=== PATIENT | male | born 1945 | race Caucasian/White ===

== ENCOUNTER 2018-02-20 17:56 | Emergency (ER) | payer MEDICARE, OTHER ==
[~2018-02-20] VITALS: Ht 185.4 cm; Wt 149.2 kg
[~2018-02-20 17:56] MED LIST: AMAN100T PO; AMOX-355 PO; AMOX-358 PO; ASP81TEC PO; ASPI81TA57 PO; CA C1TAB26 PO; CARB1TAB6 PO; CEPH-38 PO; CHOL10003 PO; CLIN300C11 PO; DICL500C PO; DONE10TA41 PO; FISH1CAP15 PO; FURO80TA3 PO; GABA300C PO; GUAI120013 PO; IBUP-30 PO; INDO50CA PO; LEVO750T6 PO; LISI20TA PO; METO25TA2 PO; METO25TA6 PO; METO50TA2 PO; METO50TA7 PO; NAPR-243 PO; NTR.4SL SL; POTA99TA4 PO; ROSU10TA12 PO; SERT100T PO; TRM50T PO; UBID100C8 PO; [UNRECOGNIZED DRUG - OTHER] SL; hydrocodone
[2018-02-20] MEDS ORDERED: AUGMENTIN 875 MG TAB (AMOXICILLIN/CLAVULANATE) PO STA (19:19)
[2018-02-20] MEDS ORDERED: morphine INJ 10 MG/ML 1ML (SYR OR VIAL) IM STA (19:19)
--- NOTE | 2018-02-20 19:26 | ED EENT ---
History of Present Illness General Chief Complaint: Dental Problems/Pain Stated Complaint: ABSCESS IN MOUTH, TROUBLE SWALLOWING Nursing Triage Note: Pt has dental abscess w/ pain radiating to L ear and difficulty swallowing. Pt was put on clindamycin by Dr. Steinberg. Pt reports pain and swelling continues to get worse. Source: patient Exam Limitations: no limitations History of Present Illness Date Seen by Provider: Feb 20, 2018 Time Seen by Provider: 19:05 Initial Comments Here with report of pain to the left side of the upper jaw and left sinuses radiates to the ear. Does have some throat pain on the left side that is painful to swallow. He is not having difficulty with swallowing or breathing but it hurts. Does notice lymphadenopathy on the left as well. Was started on clindamycin and yesterday but is not getting better. In fact he appears to be getting a little bit worse which prompted the visit. Does have history of sinusitis problems. Does have poor dentition and [facility]. Denies breathing or vomiting problems otherwise. Timing/Duration: gradual, other (several days) Severity: moderate Location: mouth, throat, facial, dental Prearrival Treatment: prescription meds Modifying Factors: Worse With Activity Associated Symptoms: No cough, No fever, sinus infection, sore throat, tooth pain, No voice change Allergies and Home Medications Allergies Coded Allergies: No Known Drug Allergies (Unverified , 07/02/10) Home Medications Amantadine Hcl 100 Mg Tablet, 100 MG PO DAILY, (Reported) Amoxicillin/Potassium Clav 1 Each Tablet, 1 EACH PO BID Prescribed by: CARL SANDERS on 10/03/16 152 Aspirin 81 Mg Tablet.dr, 81 MG PO DAILY, (Reported) Carbidopa/Levodopa 1 Each Tablet, 1 TAB PO 5 X DAILY, (Reported) Cholecalciferol 1,000 Unit Tablet, 1,000 UNIT PO DAILY, (Reported) Clindamycin HCl 300 Mg Capsule, 300 MG PO QID Prescribed by: THU ENGLISH on 10/16/151818 Dicloxacillin Sodium 500 Mg Capsule, 500 MG PO QID Prescribed by: THU ENGLISH on 10/16/151818 Donepezil Hcl 10 Mg Tablet, 10 MG PO HS, (Reported) Furosemide 80 Mg Tablet, 80 MG PO DAILY PRN for SWELLING, (Reported) Gabapentin 300 Mg Capsule, 600 MG PO HS, (Reported) Guaifenesin 1,200 Mg Tbmp.12hr, 1,200 MG PO BID PRN for COUGH Prescribed by: PARISH STEINBERG on 12/28/14 0923 Ibuprofen 200 Mg Tablet, 600 MG PO DAILY, (Reported) TAKES 3 (200MG) Lisinopril 20 Mg Tablet, 20 MG PO DAILY, (Reported) Metoprolol Tartrate 25 Mg Tablet, 50 MG PO DAILY, (Reported) TAKES 2 (25MG) TABLET Metoprolol Tartrate 25 Mg Tablet, 25 MG PO HS, (Reported) Nitroglycerin 0.4 Mg Subl, 0.4 MG SL NEEDED, (Reported) Potassium Gluconate 99 Mg Tablet, 99 MG PO DAILY PRN for WITH LASIX, (Reported) Rosuvastatin Calcium 10 Mg Tablet, 10 MG PO DAILY, (Reported) Sertraline HCl 100 Mg Tablet, 200 MG PO DAILY, (Reported) Ubidecarenone 100 Mg Capsule, 100 MG PO DAILY, (Reported) Patient Home Medication List Home Medication List Reviewed: Yes Review of Systems Constitutional: see HPI, No chills, No fever Eyes: No Symptoms Reported Ears: See HPI, Pain Nose: congestion, pain Mouth: pain, swelling Throat: pain, denies neck stiffness, denies hoarse, denies aphonia, denies muffled, painful swallowing, denies difficulty with fluids Respiratory: No cough, No short of breath Cardiovascular: no symptoms reported Gastrointestinal: no symptoms reported Musculoskeletal: no symptoms reported Skin: no symptoms reported, No change in color, No lesions Past Eaqswxg-Vqwkte-Heygtx Hx Patient Social History Alcohol Use: Denies Use Recreational Drug Use: No Smoking Status: Current Someday Smoker Type Used: Cigars 2nd Hand Smoke Exposure: No Recent Foreign Travel: No Contact w/Someone Who Travel: No Recent Infectious Disease Expo: No Recent Hopitalizations: No Immunizations Up To Date Tetanus Booster (TDap): Less than 5yrs Date of Pneumonia Vaccine: Jan 24, 2014 Seasonal Allergies Seasonal Allergies: No Surgeries History of Surgeries: Yes (HORSE SHOE KIDNEY- stents ) Respiratory History of Respiratory Disorde: No Cardiovascular History of Cardiac Disorders: Yes Cardiac Disorders: Heart Attack, High Cholesterol, Hypertension Neurological History of Neurological Disord: Yes Neurological Disorders: Dementia, Parkinson's Disease Reproductive System Hx Reproductive Disorders: No Gastrointestinal History of Gastrointestinal Di: No Musculoskeletal History of Musculoskeletal Dis: No Endocrine History of Endocrine Disorders: No HEENT HEENT Disorders: Tinnitis Cancer History of Cancer: No Psychosocial History of Psychiatric Problem: Yes Behavioral Health Disorders: PTSD Integumentary History of Skin or Integumenta: No Blood Transfusions History of Blood Disorders: No Reviewed Nursing Assessment Reviewed/Agree w Nursing PMH: Yes Family Medical History Significant Family History: No Pertinent Family Hx Family Medial History: Alzheimer's disease 19 MOTHER Cardiovascular disease 19 MOTHER Dementia 19 MOTHER Myocardial infarction 19 MOTHER Physical Exam Vital Signs Vital Signs - First Documented 02/20/18 18:12 Temp 98.1 Pulse 73 Resp 18 B/P (MAP) 135/68 (90) Pulse Ox 94 O2 Delivery Room Air General Appearance: WD/WN, no apparent distress Ears: bilateral ear auricle normal, bilateral ear canal normal, bilateral ear TM normal Nose: sinus tenderness (especially on the left frontal and maxillary), other ( moderate to significant bilateral nasal congestion with erythema) Mouth/Throat: dental tenderness, No maxillary swelling, No pharynx swelling, pharynx tenderness, No tonsillar swelling, No trismus, No voice changes, other ( tender over the maxillary sinus and posterior maxillary teeth on the left) Neck: full range of motion, supple, No lymphadenopathy (R), lymphadenopathy (L) Cardiovascular: regular rate, rhythm, no murmur Respiratory: lungs clear, normal breath sounds Neurologic/Psychiatric: alert, oriented x 3 Skin: normal color, warm/dry Progress/Results/Core Measures Results/Orders My Orders Orders - MAL SIERRA MD Amoxicillin/Clavulanate Tablet (Augmenti (02/20/18 19:19) Morphine Injection (Morphine Injection (02/20/18 19:19) Dexamethasone Injection (Decadron Inject (02/20/18 19:30) Medications Given in ED Current Medications Medications Dose Ordered Sig/Timmy Route Start Time Stop Time Status Last Admin Dose Admin Dexamethasone Sodium Phosphate 10 mg ONCE ONCE IM 02/20/18 19:30 02/20/18 19:31 DC 02/20/18 19:41 10 MG Vital Signs/I&O Vital Sign - Last 12Hours 02/20/18 18:12 Temp 98.1 Pulse 73 Resp 18 B/P (MAP) 135/68 (90) Pulse Ox 94 O2 Delivery Room Air Blood Pressure Mean: 90 Progress Note : Progress Note Seen and evaluated. Augmentin 875 mg by mouth given due to concerns of untreated sinusitis. Decadron 10 mg IM and morphine 10 mg IM for pain and sinus disease. Discharged home with return precautions. Patient verbalize understanding instructions and agreement with plan. Departure Impression Impression: Primary Impression: Acute maxillary sinusitis Qualified Codes: J01.00 - Acute maxillary sinusitis, unspecified Additional Impression: Dental caries Disposition: HOME, SELF-CARE Condition: Improved Departure-Patient Inst. Decision time for Depature: 19:44 Referrals: PARISH STEINBERG DO (PCP/Family) Primary Care Physician Patient Instructions: Dental Pain (DC), Sinusitis, Adult (DC) Add. Discharge Instructions: All discharge instructions reviewed with patient and/or family. Voiced understanding. Take medications as directed. You may take your hydrocodone 2 tablets every 6 hours as needed for pain but do not take more than 2 every 6 hours. You may discontinue the clindamycin and start the Augmentin. Follow up with your Dr. in a few days for recheck. Return for worsening, fever, vomiting, weakness, breathing problems or other concerns as needed. Scripts Amoxicillin/Potassium Clav (Augmentin 875-125 Tablet) 1 Each Tablet 1 EACH PO BID, #20 TAB 0 Refills Prov: MAL SIERRA MD 02/20/18 MAL SIERRA MD Feb 20, 2018 19:26
[2018-02-20] MEDS ORDERED: DEXAMETHASONE 10 MG/ML (DECADRON) 1 ML VIAL IM ONE (19:30)
[2018-02-20] MEDS ORDERED: AMOX-358 PO (19:47)
[2018-02-20 19:55] VITALS: BP 135/68
== END 2018-02-20 19:55 | disposition home or self-care (01) ==
LOC: EDUNIT# 17:56 → ER 17:58
DX: J01.00 Acute maxillary sinusitis, unspecified (principal); K02.9 Dental caries, unspecified; I25.2 Old myocardial infarction; E78.00 Pure hypercholesterolemia, unspecified; I10 Essential (primary) hypertension; G20 Parkinson's disease; F03.90 Unspecified dementia, unspecified severity, without behavioral disturbance, psychotic disturbance, mood disturbance, and anxiety; F43.10 Post-traumatic stress disorder, unspecified; F17.290 Nicotine dependence, other tobacco product, uncomplicated; Z79.82 Long term (current) use of aspirin; Z82.49 Family history of ischemic heart disease and other diseases of the circulatory system; Z96.0 Presence of urogenital implants
CPT/HCPCS: 96372; 99284

== ENCOUNTER → 2019-04-07 | Outpatient (CLI) | payer MEDICARE, OTHER ==
--- NOTE | 2019-04-07 17:39 | Diagnostic Imaging Report ---
INDICATION: History of tendinitis. Bilateral knee pain. Muscle weakness. COMPARISON: 11/14/2016. FINDINGS: Multiple radiographic views of the bilateral knees were obtained. There is no evidence of acute fracture or dislocation. There are mild osteoarthritic changes bilaterally, consisting primarily of medial tibiofemoral joint space narrowing. Patellar osteophyte formations are also noted, superiorly and bilaterally. There is no large joint effusion. Surrounding soft tissue structures are unremarkable. No unexpected radiopaque foreign bodies are seen. IMPRESSION: 1. No acute fracture or dislocation of either knee. 2. Mild osteoarthritic changes. Dictated by: Dictated on workstation # [id number]
== END ==
LOC: RAD 10:39
PROVIDERS: ATTEND Internal Medicine
DX: M17.0 Bilateral primary osteoarthritis of knee (principal); M77.9 Enthesopathy, unspecified; M62.81 Muscle weakness (generalized)

== ENCOUNTER 2022-03-05 03:30 | Emergency (ER) | payer MEDICARE, OTHER ==
[~2022-03-05] VITALS: Ht 182 cm; Wt 136.0 kg
[~2022-03-05 03:30] MED LIST changes: +CLIN-144 PO; -CLIN300C11 PO
--- NOTE | 2022-03-05 04:09 | ED Upper Extremity ---
General Chief Complaint: Upper Extremity Stated Complaint: LEFT HAND SWOLLEN & HOT Nursing Triage Note: Pt ambulatory to ED c/o pain to left wrist/hand. Pt states he was drilling on Friday and lost control of it and hit his left wrist, was unable to sleep tonight d/t the pain. Source: patient History of Present Illness Date Seen by Provider: Mar 05, 2022 Time Seen by Provider: 03:47 Initial Comments PT ARRIVES VIA POV FROM HOME WITH C/O PAIN, REDNESS AND SWELLING TO LEFT HAND STATES ON FRIDAY HE WAS USING A DRILL AND HE LOST CONTROL OF IT AND IT KICKED BACK AND HIT THE BACK OF HIS LEFT HAND, NEAR BASE OF THUMB AND WRIST AREA NO BROKEN SKIN NO PARESTHESIAS OR MOTOR DEFICITS NO OTHER INJURIES FROM THE INCIDENT NO PRIOR INJURIES TO THIS HAND/WRIST PT IS LEFT HANDED PT TOOK IBUPROFEN AT MIDNIGHT, NO RELIEF PT IS NOT DIABETIC PT IS NOT ON ASPIRIN OR BLOOD THINNERS PCP: DR. CAMARENA Allergies and Home Medications Allergies Coded Allergies: No Known Drug Allergies (Unverified , 07/02/10) Patient Home Medication List Amantadine Hcl (Amantadine) 100 Mg Tablet, 100 MG PO DAILY, (Reported) Entered as Reported by: THO SOLORZANO on 12/26/14 1643 Amoxicillin/Potassium Clav (Augmentin 500-125 Tablet) 1 Each Tablet, 1 EACH PO BID Prescribed by: CARL SANDERS on 10/03/16 1522 Amoxicillin/Potassium Clav (Augmentin 875-125 Tablet) 1 Each Tablet, 1 EACH PO BID Prescribed by: MAL SIERRA on 02/20/18 1947 Aspirin (Aspir-Low) 81 Mg Tablet.dr 81 MG PO DAILY, (Reported) Entered as Reported by: THO SOLORZANO on 12/26/14 1657 Carbidopa/Levodopa (Sinemet 25-100 Tablet) 1 Each Tablet, 1 TAB PO 5 X DAILY, (Reported) Entered as Reported by: THO SOLORZANO on 12/26/14 1643 Cephalexin (Cephalexin) 500 Mg Tablet, 500 MG PO QID Prescribed by: GRETCHEN TOSCANO on 03/05/22 0415 Cholecalciferol (Vitamin D) 1,000 Unit Tablet, 1,000 UNIT PO DAILY, (Reported) Entered as Reported by: THO SOLORZANO on 12/26/14 1204 Clindamycin HCl (Clindamycin HCl) 300 Mg Capsule, 300 MG PO QID Prescribed by: THU ENGLISH on 10/16/151818 Dicloxacillin Sodium (Dicloxacillin Sodium) 500 Mg Capsule, 500 MG PO QID Prescribed by: THU ENGLISH on 10/16/151818 Donepezil Hcl (Donepezil Hcl) 10 Mg Tablet, 10 MG PO HS, (Reported) Entered as Reported by: DIXON BAILEY on 06/16/121715 Furosemide (Furosemide) 80 Mg Tablet, 80 MG PO DAILY PRN for SWELLING, (Reported) Entered as Reported by: SHAD LITTLE on 07/02/10822 Gabapentin (Neurontin) 300 Mg Capsule, 600 MG PO HS, (Reported) Entered as Reported by: THO SOLORZANO on 12/26/141656 Guaifenesin (Mucinex) 1,200 Mg Tbmp.12hr, 1,200 MG PO BID PRN for COUGH Prescribed by: PARISH CAMARENA on 12/28/14922 Hydrocodone/Acetaminophen (Hydrocodone-Acetamin 5-325 mg) 1 Each Tablet, 1 EACH PO Q4-6 HOURS PRN for PAIN Prescribed by: GRETCHEN TOSCANO on 03/05/22415 Ibuprofen (Advil) 200 Mg Tablet, 600 MG PO DAILY, (Reported) Entered as Reported by: DIXON BAILEY on 06/16/121715 Lisinopril (Zestril) 20 Mg Tablet, 20 MG PO DAILY, (Reported) Entered as Reported by: SHAD LITTLE on 07/02/10822 Metoprolol Tartrate (Metoprolol Tartrate) 25 Mg Tablet, 50 MG PO DAILY, (Reported) Entered as Reported by: THO SOLORZANO on 12/26/141656 Metoprolol Tartrate (Metoprolol Tartrate) 25 Mg Tablet, 25 MG PO HS, (Reported) Entered as Reported by: THO SOLORZANO on 12/26/141656 Nitroglycerin (Nitrostat) 0.4 Mg Subl, 0.4 MG SL NEEDED, (Reported) Entered as Reported by: DIXON BAILEY on 06/16/121715 Potassium Gluconate (Potassium Gluconate) 99 Mg Tablet, 99 MG PO DAILY PRN for WITH LASIX, (Reported) Entered as Reported by: SHAD LITTLE on 07/02/10822 Rosuvastatin Calcium (Crestor) 10 Mg Tablet, 10 MG PO DAILY, (Reported) Entered as Reported by: SHAD LITTLE on 07/02/10822 Sertraline HCl (Zoloft) 100 Mg Tablet, 200 MG PO DAILY, (Reported) Entered as Reported by: CATILIN BULL on 10/16/15 1546 Ubidecarenone (Co Q10) 100 Mg Capsule, 100 MG PO DAILY, (Reported) Entered as Reported by: DIXON BAILEY on 06/16/12 1716 Past Sjkuitx-Vsilmb-Hwichc Hx Patient Social History Tobacco Use?: No Substance use?: No Alcohol Use?: No Immunizations Up To Date Tetanus Booster (TDap): Less than 5yrs Influenza Vaccine Up-to-Date: Yes; Up-to-Date First/Initial COVID19 Vaccinat: 12/14 Second COVID19 Vaccination [place]: 01/14 COVID19 Vaccine 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 Tender: Banksnob Seasonal Allergies Seasonal Allergies: No Past Medical History Surgeries: Yes (HORSE SHOE KIDNEY- stents ) Respiratory: No Cardiac: Yes Heart Attack, High Cholesterol, Hypertension Neurological: Yes Dementia, Parkinson's Disease Reproductive Disorders: No Gastrointestinal: No Musculoskeletal: No Endocrine: No Tinnitis Cancer: No Psychosocial: Yes PTSD Integumentary: No Blood Disorders: No Family Medical History Alzheimer's disease 19 MOTHER Cardiovascular disease 19 MOTHER Dementia 19 MOTHER Myocardial infarction 19 MOTHER No Family History of: AIDS Abdominal aortic aneurysm Julio César's disease Alcoholism Aphasia Arthritis Asthma Cancer of mouth Cataracts Colon cancer Completed stroke Congenital disease Congenital heart disease Coronary thrombosis Cystic fibrosis Deafness or hearing loss Diabetes mellitus Drug abuse Dysphasia Fibrocystic disease of breast Gastroenteritis Glaucoma Headache disorder Hypercholesterolemia Hypertension Infertility Kidney disease Neoplasm Not obtainable due to adoption Osteoporosis Parkinson's disease Prostate cancer Psychosocial problem Respiratory disorder Seizure disorder Severe allergy Thyroid disease Tuberculosis Visual disorder No Pertinent Family Hx Physical Exam Vital Signs Vital Signs - First Documented 03/05/22 03:42 Temp 36.1 Pulse 59 Resp 18 B/P (MAP) 132/69 (90) Pulse Ox 96 O2 Delivery Room Air Capillary Refill : Less Than 3 Seconds Height, Weight, BMI Height: 6'1.00" Weight: 329lbs. oz. 149.934573sa; 41.00 BMI Method:Stated Procedures/Interventions Splinting and Joint Reduction : Splints: Thumb/Wrist Spica Progress/Results/Core Measures Results/Orders My Orders Orders - GRETCHEN TOSCANO DO Wrist, Left, 3 Views Or More (03/05/22 03:52) Hand, Left, 3 Views (03/05/22 03:52) Rx-Hydrocodone/Apap 5-325 Mg (Rx-Vicodin (03/05/22 04:30) Rx-Cephalexin Capsule (Rx-Keflex Capsule (03/05/22 04:16) Vital Signs/I&O 03/05/22 03:42 Temp 36.1 Pulse 59 Resp 18 B/P (MAP) 132/69 (90) Pulse Ox 96 O2 Delivery Room Air Blood Pressure Mean: 90 Diagnostic Imaging Comments XRAYS--PENDING RADIOLOGIST REVIEW LEFT HAND AND LEFT WRIST--NO ACUTE PROCESS, ARTHRITIC CHANGES Departure Impression Primary Impression: Contusion of left hand Additional Impression: POSSIBLE EARLY CELLULITIS OF LEFT HAND Disposition: 01 HOME, SELF-CARE Condition: Stable Departure-Patient Inst. Decision time for Depature: 04:13 Referrals: PARISH CAMARENA DO (PCP/Family) Primary Care Physician Patient Instructions: Cellulitis (Skin Infection), Adult ED, Contusion (DC) Add. Discharge Instructions: WARM EPSOM SALTS SOAKS 2-3 TIMES A DAY, FOLLOWED BY ICE TO AREA AT 20 MINUTE INTERVALS WEAR SPLINT NEEDED FOR COMFORT ELEVATE HAND MUCH POSSIBLE FOLLOW UP WITH DR. CAMARENA IN 2-3 DAYS FOR FURTHER CARE All discharge instructions reviewed with patient and/or family. Voiced understanding. Scripts Ondansetron (Ondansetron Odt) 4 Mg Tab.rapdis 4 MG PO Q4H for Nausea/Vomiting, #20 TAB Prov: GRETCHEN TOSCANO DO 03/05/22 Hydrocodone/Acetaminophen (Hydrocodone-Acetamin 5-325 mg) 1 Each Tablet 1 EACH PO Q4-6 HOURS PRN for PAIN, #20 TAB Prov: GRETCHEN TOSCANO DO 03/05/22 Cephalexin (Cephalexin) 500 Mg Tablet 500 MG PO QID, #40 TAB Prov: GRETCHEN TOSCANO DO 03/05/22 GRETCHEN TOSCANO DO Mar 05, 2022 04:09
[2022-03-05] MEDS ORDERED: ACHD5005 PO (04:15)
[2022-03-05] MEDS ORDERED: CEPH500T PO (04:15)
[2022-03-05] MEDS ORDERED: RX-CEPHALEXIN (KEFLEX) 250 MG CAP PPK#4 PO STA (04:16)
[2022-03-05] MEDS ORDERED: RX-ONDANSETRON 4 MG ODT (ZOFRAN) PPK #4 PO STA (04:21)
[2022-03-05] MEDS ORDERED: ONDA4TAB11 PO (04:21)
[2022-03-05 04:34] VITALS: BP 132/69
--- NOTE | 2022-03-05 07:01 | Diagnostic Imaging Report ---
EXAMINATION: Left hand radiograph EXAM DATE: 03/05/2022 COMPARISON: None available. HISTORY: Left hand pain TECHNIQUE: 3 views of the left hand FINDINGS: There is no acute fracture, dislocation, or destructive osseous process. There are multifocal degenerative changes seen throughout the left hand greatest within the interphalangeal joints and 1st carpometacarpal joint. The soft tissues are normal. IMPRESSION: 1. Degenerative changes of the left hand without acute osseous abnormality. Dictated by: Dictated on workstation # [id number]
--- NOTE | 2022-03-05 07:20 | Diagnostic Imaging Report ---
EXAMINATION: Left wrist radiograph EXAM DATE: 03/05/2022 COMPARISON: 03/22/2011 HISTORY: Left wrist pain TECHNIQUE: 3 views of the left wrist FINDINGS: There is no acute fracture, dislocation, or destructive osseous process. There are degenerative changes of the 1st carpometacarpal joint. The soft tissues are normal. IMPRESSION: 1. Degenerative changes of the left wrist without acute osseous abnormality. Dictated by: Dictated on workstation # [id number]
== END 2022-03-05 04:34 | disposition home or self-care (01) ==
LOC: EDUNIT# 03:30 → ER 03:35
DX: S60.222A Contusion of left hand, initial encounter (principal); W22.8XXA Striking against or struck by other objects, initial encounter
CPT/HCPCS: 73110; 73130

== ENCOUNTER 2022-04-12 21:21 | Emergency (ER) | payer MEDICARE, OTHER ==
[~2022-04-12] VITALS: Ht 182.8 cm; Wt 84.4 kg
[~2022-04-12 21:21] MED LIST changes: +ACHD5005 PO; +CEPH500T PO; +ONDA4TAB11 PO
--- NOTE | 2022-04-12 21:45 | ED Respiratory ---
General Stated Complaint: POSITIVE COVID TESTS/LIGHTHEADED/COUGH Source: patient Exam Limitations: no limitations History of Present Illness Date Seen by Provider: April 12, 2022 Time Seen by Provider: 21:41 Initial Comments Patient is a 76-year-old male who presents ED concern for COVID. He states he had 2 positive test at home and wanted to get verified this evening. He states he had a positive swab today. States he had a low-grade temperature 100. Took Tylenol and a energy drink today. Patient states he was placed on cefdinir 2 months ago for sinus infection. States he has nasal congestion sinus pressure daily. No acute changes today. Denies any chest pain, abdominal pain, vomiting, diarrhea. Reports a mild cough but denies shortness of breath wheezing. Denies history of coronary artery disease, asthma, diabetes, stroke. Patient states he has tired daily secondary to working. 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 No increased tiredness, joint pain body aches today. Allergies and Home Medications Allergies Coded Allergies: No Known Drug Allergies (Unverified , 07/02/10) Patient Home Medication List Home Medication List Reviewed: Yes Amantadine Hcl (Amantadine) 100 Mg Tablet, 100 MG PO DAILY, (Reported) Entered as Reported by: THO SOLORZANO on 12/26/14 1643 Amoxicillin/Potassium Clav (Augmentin 500-125 Tablet) 1 Each Tablet, 1 EACH PO BID Prescribed by: CARL SANDERS on 10/03/16 1522 Amoxicillin/Potassium Clav (Augmentin 875-125 Tablet) 1 Each Tablet, 1 EACH PO BID Prescribed by: MAL SIERRA on 02/20/18 194 Aspirin (Aspir-Low) 81 Mg Tablet.dr, 81 MG PO DAILY, (Reported) Entered as Reported by: THO SOLORZANO on 12/26/14 1657 Carbidopa/Levodopa (Sinemet 25-100 Tablet) 1 Each Tablet, 1 TAB PO 5 X DAILY, (Reported) Entered as Reported by: THO SOLORZANO on 12/26/14 1643 Cephalexin (Cephalexin) 500 Mg Tablet, 500 MG PO QID Prescribed by: GRETCHEN TOSCANO on 03/05/22 0415 Cholecalciferol (Vitamin D) 1,000 Unit Tablet, 1,000 UNIT PO DAILY, (Reported) Entered as Reported by: THO SOLORZANO on 12/26/14 1204 Clindamycin HCl (Clindamycin HCl) 300 Mg Capsule, 300 MG PO QID Prescribed by: THU ENGLISH on 10/16/151818 Dicloxacillin Sodium (Dicloxacillin Sodium) 500 Mg Capsule, 500 MG PO QID Prescribed by: THU ENGLISH on 10/16/151818 Donepezil Hcl (Donepezil Hcl) 10 Mg Tablet, 10 MG PO HS, (Reported) Entered as Reported by: DIXON BAILEY on 06/16/12 171 Furosemide (Furosemide) 80 Mg Tablet, 80 MG PO DAILY PRN for SWELLING, (Reported) Entered as Reported by: SHAD LITTLE on 07/02/10822 Gabapentin (Neurontin) 300 Mg Capsule, 600 MG PO HS, (Reported) Entered as Reported by: THO SOLORZANO on 12/26/141656 Guaifenesin (Mucinex) 1,200 Mg Tbmp.12hr, 1,200 MG PO BID PRN for COUGH Prescribed by: PARISH STEINBERG on 12/28/14 09 Hydrocodone/Acetaminophen (Hydrocodone-Acetamin 5-325 mg) 1 Each Tablet, 1 EACH PO Q4-6 HOURS PRN for PAIN Prescribed by: GRETCHEN TOSCANO on 03/05/22 0416 Ibuprofen (Advil) 200 Mg Tablet, 600 MG PO DAILY, (Reported) Entered as Reported by: DIXON BAILEY on 06/16/121715 Lisinopril (Zestril) 20 Mg Tablet, 20 MG PO DAILY, (Reported) Entered as Reported by: SHAD LITTLE on 07/02/10822 Metoprolol Tartrate (Metoprolol Tartrate) 25 Mg Tablet, 50 MG PO DAILY, (Reported) Entered as Reported by: THO SOLORZANO on 12/26/141656 Metoprolol Tartrate (Metoprolol Tartrate) 25 Mg Tablet, 25 MG PO HS, (Reported) Entered as Reported by: THO SOLORZANO on 12/26/141656 Nirmatrelvir/Ritonavir (Paxlovid Co-Pack (Eua)) 150 Mg X 2-100 Mg Tablet, 1 EACH PO UD Prescribed by: MARSHALL MANCINI on 04/13/22 1157 Nitroglycerin (Nitrostat) 0.4 Mg Subl, 0.4 MG SL NEEDED, (Reported) Entered as Reported by: DIXON BAILEY on 06/16/12 171 Ondansetron (Ondansetron Odt) 4 Mg Tab.rapdis, 4 MG PO Q4H Prescribed by: GRETCHEN TOSCANO on 03/05/22 0421 Potassium Gluconate (Potassium Gluconate) 99 Mg Tablet, 99 MG PO DAILY PRN for WITH LASIX, (Reported) Entered as Reported by: SHAD LITTLE on 07/02/10 08 Rosuvastatin Calcium (Crestor) 10 Mg Tablet, 10 MG PO DAILY, (Reported) Entered as Reported by: SHAD LITTLE on 07/02/10822 Sertraline HCl (Zoloft) 100 Mg Tablet, 200 MG PO DAILY, (Reported) Entered as Reported by: CAITLIN BULL on 10/16/15 1546 Ubidecarenone (Co Q10) 100 Mg Capsule, 100 MG PO DAILY, (Reported) Entered as Reported by: DIXON BAILEY on 06/16/12 171 Review of Systems Review of Systems Constitutional: No chills, No diaphoresis; malaise, weakness EENTM: nose congestion; No hearing loss, No blurred vision, No double vision, No eye pain, No dental problems, No mouth pain Respiratory: cough; No short of breath Cardiovascular: No chest pain Gastrointestinal: No abdominal pain, No diarrhea, No nausea, No vomiting Genitourinary: No decreased output, No discharge Musculoskeletal: No back pain, No joint pain Skin: No change in color All Other Systems Reviewed Negative Unless Noted: Yes Past Tmilmcs-Pulozo-Harvcr Hx Immunizations Up To Date Tetanus Booster (TDap): Less than 5yrs First/Initial COVID19 Vaccinat: 12/14 Second COVID19 Vaccination [place]: 01/14 Seasonal Allergies Seasonal Allergies: No Past Medical History Surgeries: Yes (HORSE SHOE KIDNEY- stents ) Respiratory: No Cardiac: Yes Heart Attack, High Cholesterol, Hypertension Neurological: Yes Dementia, Parkinson's Disease Reproductive Disorders: No Gastrointestinal: No Musculoskeletal: No Endocrine: No Tinnitis Cancer: No Psychosocial: Yes PTSD Integumentary: No Blood Disorders: No Family Medical History Alzheimer's disease 19 MOTHER Cardiovascular disease 19 MOTHER Dementia 19 MOTHER Myocardial infarction 19 MOTHER No Family History of: AIDS Abdominal aortic aneurysm Stearns's disease Alcoholism Aphasia Arthritis Asthma Cancer of mouth Cataracts Colon cancer Completed stroke Congenital disease Congenital heart disease Coronary thrombosis Cystic fibrosis Deafness or hearing loss Diabetes mellitus Drug abuse Dysphasia Fibrocystic disease of breast Gastroenteritis Glaucoma Headache disorder Hypercholesterolemia Hypertension Infertility Kidney disease Neoplasm Not obtainable due to adoption Osteoporosis Parkinson's disease Prostate cancer Psychosocial problem Respiratory disorder Seizure disorder Severe allergy Thyroid disease Tuberculosis Visual disorder No Pertinent Family Hx Physical Exam Vital Signs - First Documented 04/12/22 22:23 Temp 36.8 Pulse 85 Resp 20 B/P (MAP) 160/86 (110) Pulse Ox 98 O2 Delivery Room Air Capillary Refill : Height: 6'1.00" Weight: 329lbs. oz. 149.164678xx; 41.00 BMI Method:Stated General Appearance: WD/WN, no apparent distress Eyes: Bilateral Eye Normal Inspection, Bilateral Eye PERRL, Bilateral Eye EOMI HEENT: PERRL/EOMI, normal ENT inspection, TMs normal, pharynx normal Neck: non-tender, full range of motion, supple, normal inspection Respiratory: chest non-tender, lungs clear, normal breath sounds, no respiratory distress Cardiovascular: regular rate, rhythm, no edema, no gallop, no JVD Gastrointestinal: normal bowel sounds, non tender, soft Extremities: normal range of motion, non-tender, normal inspection, no pedal edema Skin: normal color, warm/dry Progress/Results/Core Measures Suspected Sepsis SIRS Temperature: Pulse: Respiratory Rate: Blood Pressure / Mean: Results/Orders Lab Results Laboratory Tests Test 04/12/22 21:35 Range/Units Influenza Type A (RT-PCR) Not Detected Not Detecte Influenza Type B (RT-PCR) Not Detected Not Detecte SARS-CoV-2 RNA (RT-PCR) Detected H Not Detecte My Orders Orders - TRACEY LONG PA Chest 1 View, Ap/Pa Only (04/12/22 21:40) Covid 19 Inhouse Test (04/12/22 21:40) Influenza A And B By Pcr (04/12/22 21:40) Vital Signs/I&O 04/12/22 04/12/22 22:23 22:35 Temp 36.8 36.8 Pulse 85 85 Resp 20 20 B/P (MAP) 160/86 (110) 160/86 Pulse Ox 98 98 O2 Delivery Room Air Room Air Capillary Refill : Departure Communication (PCP) Patient tested positive for COVID. He states he is currently on antibitoic for the past 2 months secondary to chronic sinusitis. He reports a very minimal cough. X-ray negative for pneumonia denies of any chest pain, abdominal pain vomiting or diarrhea. He states he had 2 positive COVID test at home today. Tested positive here with negative influenza. Denies history of diabetes, coronary artery disease, asthma, CHF, stroke. Patient appears well and nontoxic. Recommend continue monitoring oxygen level at home with pulse ox which she does have. Continue with conservative treatment at this time. Discussed following up with Dr. Steinberg discuss further treatment options if he believes is warranted. Discussed with patient since he does not appear toxic with stable vital signs, monoclonal antibody versus antiviral. Inpatient is not warranted. May have outpatient resources available and will discuss this with his primary for doing. If worsening symptoms such as chest pain, shortness of breath to return back to ED for further evaluation. Patient refused any lab work. He states he feels great. Patient was discussed with Dr. Steinberg on 04/13/2022 who recommends sending Paxlovid to his pharmacy. Recommends holding his statin secondary to drug interaction. He will need to follow-up on Friday for telehealth visit. Patient agrees with this plan of action. Discussed with him several times do not take your statin with the medication. Patient states he feels slightly fatigued but has no other current complaints. Continue monitoring oxygen at home. If any changes symptoms return back to ED Impression Primary Impression: COVID-19 Disposition: 01 HOME, SELF-CARE Condition: Stable Departure-Patient Inst. Decision time for Depature: 22:33 Referrals: PARISH STEINBERG DO (PCP/Family) Primary Care Physician Patient Instructions: COVID-19 (DC) Add. Discharge Instructions: Recommend following up with your primary discuss further treatment. Recommend monitoring oxygen at home. If any worsening symptoms return back to ED for further evaluation. Tylenol at home for fever Scripts Nirmatrelvir/Ritonavir (Paxlovid Co-Pack (Eua)) 150 Mg X 2-100 Mg Tablet 1 EACH PO UD for 5 Days, #1 EACH Prov: TRACEY LONG 04/13/22 TRACEY LONG April 12, 2022 21:44
--- NOTE | 2022-04-12 22:00 | Diagnostic Imaging Report ---
Indication: Positive Covid, cough Portable chest 1:47 PM Heart size and pulmonary vascularity are within normal limits. Lungs are clear. There are no effusions or pneumothoraces. IMPRESSION: No acute abnormalities in the chest Dictated by: Dictated on workstation # [id number]
[2022-04-12 22:35] VITALS: BP 160/86
[2022-04-13] MEDS ORDERED: NIRM1TAB PO (11:57)
== END 2022-04-12 22:38 | disposition home or self-care (01) ==
LOC: EDUNIT# 21:21 → ER 21:23
DX: U07.1 COVID-19 (principal)
CPT/HCPCS: 71045; 87636

== ENCOUNTER 2022-04-29 19:37 | Emergency (ER) | payer MEDICARE, OTHER ==
[~2022-04-29] VITALS: Ht 188 cm; Wt 125.0 kg
[~2022-04-29 19:37] MED LIST changes: +NIRM1TAB PO
[2022-04-29] MEDS ORDERED: NS IV 1000 ML 1,000 ML IV SCH (20:00)
[2022-04-29] MEDS ORDERED: ACETAMINOPHEN 500 MG TAB (TYLENOL) PO ONE (20:00)
[2022-04-29 20:19] LABS: BILIRUBIN,URINE NEGATIVE (NEGATIVE); CLARITY,URINE CLEAR; COLOR,URINE YELLOW; GLUCOSE, URINE (UA) NEGATIVE (NEGATIVE); KETONES,URINE NEGATIVE (NEGATIVE); LEUKOCYTE ESTERASE ,URINE NEGATIVE (NEGATIVE); NITRITE,URINE NEGATIVE (NEGATIVE); PROTEIN,URINE NEGATIVE (NEGATIVE)
[2022-04-29 20:27] LABS: BACTERIA,URINE NEGATIVE /HPF; RBC,URINE RARE /HPF; WBC,URINE RARE /HPF
[2022-04-29 20:30] LABS: BASOPHILS % (AUTO) 1 % (0-10); EOSINOPHILS % (AUTO) 0 % (0-10); HEMATOCRIT 39 % (40-54); HEMOGLOBIN 13.2 g/dL (13.3-17.7); LYMPHOCYTES # (AUTO) 0.6 10^3/uL (1.0-4.0); LYMPHOCYTES % (AUTO) 14 % (12-44); MEAN CORPUSCULAR HEMOGLOBIN 33 pg (25-34); MEAN CORPUSCULAR HGB CONC 34 g/dL (32-36); MEAN CORPUSCULAR VOLUME 96 fL (80-99); MEAN PLATELET VOLUME 10.8 fL (9.0-12.2); MONOCYTES # (AUTO) 0.3 10^3/uL (0.0-1.0); MONOCYTES % (AUTO) 7 % (0-12); NEUTROPHILS # (AUTO) 3.3 10^3/uL (1.8-7.8); NEUTROPHILS % (AUTO) 78 % (42-75); PLATELET COUNT 168 10^3/uL (130-400); WHITE BLOOD COUNT 4.3 10^3/uL (4.3-11.0)
[2022-04-29 20:45] LABS: FIBRIN DEGRADATION PRODUCTS 1.07 UG/ML (0.00-0.49); INR 1.1 (0.8-1.4); PROTHROMBIN TIME PATIENT 14.9 SEC (12.2-14.7)
[2022-04-29 20:46] LABS: ERYTHROCYTE SEDIMENTATION RATE 17 MM/HR (0-30)
--- NOTE | 2022-04-29 20:48 | Diagnostic Imaging Report ---
INDICATION: Lower respiratory infection. EXAM: Portable chest at 8:28 PM FINDINGS: The heart size and pulmonary vascularity are normal. The lungs are clear. There are no effusions or pneumothoraces. IMPRESSION: No acute abnormalities in the chest. Dictated by: Dictated on workstation # [id number]
[2022-04-29 20:51] LABS: ALANINE AMINOTRANSFERASE 24 U/L (0-55); ALBUMIN 3.8 GM/DL (3.2-4.5); ALKALINE PHOSPHATASE 68 U/L (40-136); BILIRUBIN,TOTAL 0.8 MG/DL (0.1-1.0); BUN/CREATININE RATIO 12; CALCIUM 8.8 MG/DL (8.5-10.1); CARBON DIOXIDE 20 MMOL/L (21-32); CHLORIDE 102 MMOL/L (98-107); CREATINE KINASE 98 U/L (30-200); CREATININE SERUM 1.13 MG/DL (0.60-1.30); GFR ESTIMATED 67; GLUCOSE 106 MG/DL (70-105); MAGNESIUM 1.7 MG/DL (1.6-2.4); POTASSIUM 4.1 MMOL/L (3.6-5.0); SODIUM 137 MMOL/L (135-145); TOTAL PROTEIN 6.4 GM/DL (6.4-8.2)
[2022-04-29 20:58] LABS: CREATINE KINASE MB 1.3 NG/ML (<6.6)
[2022-04-29] MEDS ORDERED: IOHEXOL 350 MG/ML 100 ML (OMNIPAQUE 350) VIAL IV ONE (21:30)
[2022-04-29] MEDS ORDERED: NS 100 ML (IVPB) BAG IV ONE (21:30)
[2022-04-29] MEDS ORDERED: CATHETER FLUSH 10 ML SYR IV PRN (21:30)
--- NOTE | 2022-04-29 22:03 | Diagnostic Imaging Report ---
PROCEDURE: CT angiography of the chest with contrast. TECHNIQUE: Multiple contiguous axial images were obtained through the chest after uneventful bolus administration of intravenous contrast. 3D reconstructed CTA MIP acquisitions were also performed. Auto Exposure Controls were utilized during the CT exam to meet ALARA standards for radiation dose reduction. INDICATION: Chest pain, shortness of breath. FINDINGS: The lungs are clear. There are no effusions or pneumothoraces. There is calcific coronary atherosclerosis. There are no pulmonary emboli. There is no right ventricular strain. There is no hilar or mediastinal lymphadenopathy. There is minimal calcific atherosclerosis of the aorta. There are stones in the gallbladder. IMPRESSION: Coronary atherosclerosis. Cholecystolithiasis. No evidence for pulmonary embolism. Dictated by: Dictated on workstation # [id number]
--- NOTE | 2022-04-29 22:14 | ED Respiratory ---
General Chief Complaint: COVID19 Suspect/Confirmed Stated Complaint: BODY AND BACK ACHES, TEMP Nursing Triage Note: PT AMB TO ED BY POV WITH C/O WEAKNESS AND BACK ACHE. PT REPORTS HE HAD COVID A COUPLE OF WEEKS AGO AND HAS BEEN WEAK AND ACHY SINCE. REPORTS HE WAS AT THE [facility] THIS EVENING AND HIS TEMP WAS 104 [employer]UST[employer]INE[employer]. PT DID NOT TAKE TYLENOL AND TEMP WAS 99.7 UPON ARRIVAL. DENIES CP, SOB. Source: patient History of Present Illness Date Seen by Provider: Apr 29, 2022 Time Seen by Provider: 19:47 Initial Comments PT ARRIVES VIA POV FROM HOME STATES HE BEGAN HAVING COVID SYMPTOMS AROUND 04/08/22, TESTED POSITIVE FOR COVID HERE IN ER 04/12/22 AND GIVEN RX FOR PAXLOVID PT HAS NOT HAD COVID OR FLU VACCINES PT STATES HE STILL FEELS WEAK, HAVING SOME BODY ACHES. STATES HE WENT TO THE [facility] AND HIS TEMP WAS "104" SO CAME H ERE. PT HAS NOT TAKEN ANYTHING FOR HIS SYMPTOMS NO CHEST PAIN NO SHORTNESS OF BREATH NO INCREASED COUGH NO SWELLING IN LEGS/ FEET OR PAIN IN [place] HAS NOT ATTEMPTED TO FOLLOW UP WITH HIS PCP AT ANY TIME FOR THIS PROBLEM. PCP:DR. CAMARENA Allergies and Home Medications Allergies Coded Allergies: No Known Drug Allergies (Unverified , 07/02/10) Patient Home Medication List Home Medication List Reviewed: Yes Amantadine Hcl (Amantadine) 100 Mg Tablet, 100 MG PO DAILY, (Reported) Entered as Reported by: THO SOLORZANO on 12/26/14 164 Amoxicillin/Potassium Clav (Augmentin 500-125 Tablet) 1 Each Tablet, 1 EACH PO BID Prescribed by: CARL SANDERS on 10/03/16 1522 Amoxicillin/Potassium Clav (Augmentin 875-125 Tablet) 1 Each Tablet, 1 EACH PO BID Prescribed by: MAL SIERRA on 02/20/18 194 Aspirin (Aspir-Low) 81 Mg Joaquin.dr 81 MG PO DAILY, (Reported) Entered as Reported by: THO SOLORZANO on 12/26/14 165 Carbidopa/Levodopa (Sinemet 25-100 Tablet) 1 Each Tablet, 1 TAB PO 5 X DAILY, (Reported) Entered as Reported by: THO SOLORZANO on 12/26/14 164 Cephalexin (Cephalexin) 500 Mg Tablet, 500 MG PO QID Prescribed by: GRETCHEN TOSCANO on 03/05/22414 Cholecalciferol (Vitamin D) 1,000 Unit Tablet, 1,000 UNIT PO DAILY, (Reported) Entered as Reported by: THO SOLORZANO on 12/26/14 1204 Clindamycin HCl (Clindamycin HCl) 300 Mg Capsule, 300 MG PO QID Prescribed by: THU ENGLISH on 10/16/151818 Dicloxacillin Sodium (Dicloxacillin Sodium) 500 Mg Capsule, 500 MG PO QID Prescribed by: THU ENGLISH on 10/16/151818 Donepezil Hcl (Donepezil Hcl) 10 Mg Tablet, 10 MG PO HS, (Reported) Entered as Reported by: DIXON BAILEY on 06/16/121715 Furosemide (Furosemide) 80 Mg Tablet, 80 MG PO DAILY PRN for SWELLING, (Reported) Entered as Reported by: SHAD LITTLE on 07/02/10822 Gabapentin (Neurontin) 300 Mg Capsule, 600 MG PO HS, (Reported) Entered as Reported by: THO SOLORZANO on 12/26/141656 Guaifenesin (Mucinex) 1,200 Mg Tbmp.12hr, 1,200 MG PO BID PRN for COUGH Prescribed by: PARISH CAMARENA on 12/28/14 09 Hydrocodone/Acetaminophen (Hydrocodone-Acetamin 5-325 mg) 1 Each Tablet, 1 EACH PO Q4-6 HOURS PRN for PAIN Prescribed by: GRETCHEN TOSCANO on 03/05/22415 Ibuprofen (Advil) 200 Mg Tablet, 600 MG PO DAILY, (Reported) Entered as Reported by: DIXON BAILEY on 06/16/121715 Lisinopril (Zestril) 20 Mg Tablet, 20 MG PO DAILY, (Reported) Entered as Reported by: SHAD LITTLE on 07/02/10822 Metoprolol Tartrate (Metoprolol Tartrate) 25 Mg Tablet, 50 MG PO DAILY, (Reported) Entered as Reported by: THO SOLORZANO on 12/26/141656 Metoprolol Tartrate (Metoprolol Tartrate) 25 Mg Tablet, 25 MG PO HS, (Reported) Entered as Reported by: THO SOLORZANO on 2/2/15 1657 Nirmatrelvir/Ritonavir (Paxlovid Co-Pack (Eua)) 150 Mg X 2-100 Mg Tablet, 1 EACH PO UD Prescribed by: MARSHALL MANCINI on 04/13/22 1157 Nitroglycerin (Nitrostat) 0.4 Mg Subl, 0.4 MG SL NEEDED, (Reported) Entered as Reported by: DIXON BAILEY on 06/16/12 171 Ondansetron (Ondansetron Odt) 4 Mg Tab.rapdis, 4 MG PO Q4H Prescribed by: GRETCHEN TOSCANO on 03/05/22 0421 Potassium Gluconate (Potassium Gluconate) 99 Mg Tablet, 99 MG PO DAILY PRN for WITH LASIX, (Reported) Entered as Reported by: SHAD LITTLE on 07/02/10 0823 Rosuvastatin Calcium (Crestor) 10 Mg Tablet, 10 MG PO DAILY, (Reported) Entered as Reported by: SHAD LITTLE on 07/02/10 0823 Sertraline HCl (Zoloft) 100 Mg Tablet, 200 MG PO DAILY, (Reported) Entered as Reported by: CAITLIN BULL on 10/16/15 1546 Ubidecarenone (Co Q10) 100 Mg Capsule, 100 MG PO DAILY, (Reported) Entered as Reported by: DIXON BAILEY on 06/16/12 171 Review of Systems Review of Systems Constitutional: see HPI, fever, malaise, weakness EENTM: no symptoms reported Respiratory: no symptoms reported; No cough, No short of breath Cardiovascular: no symptoms reported; No chest pain Gastrointestinal: no symptoms reported; No diarrhea, No nausea, No vomiting Genitourinary: no symptoms reported Musculoskeletal: see HPI Skin: no symptoms reported Psychiatric/Neurological: No Symptoms Reported Hematologic/Lymphatic: No Symptoms Reported Immunological/Allergic: no symptoms reported Past Ldbifwz-Wnzvyt-Vxhtrv Hx Patient Social History Tobacco Use?: Yes Tobacco type used: Cigars Smoking Status: Former Smoker Substance use?: No Alcohol Use?: Yes Alcohol Frequency: Once in a while Immunizations Up To Date Tetanus Booster (TDap): Less than 5yrs First/Initial COVID19 Vaccinat: 12/14 Second COVID19 Vaccination [place]: 01/14 Third COVID19 Vaccination Date: 01/15 Seasonal Allergies Seasonal Allergies: No Past Medical History Surgeries: Yes (HORSE SHOE KIDNEY- ; CARDIAC CATH WITH STENT) CABG, Coronary Stent, Vascular Surgery Respiratory: No Cardiac: Yes (CARDIAC CATH WITH STENT) Coronary Artery Disease, Heart Attack, High Cholesterol, Hypertension Neurological: Yes Dementia, Parkinson's Disease Reproductive Disorders: No Genitourinary: Yes (HORSESHOE KIDNEY) Gastrointestinal: No Musculoskeletal: No Endocrine: Yes (OBESITY) Tinnitis Cancer: No Psychosocial: Yes PTSD Integumentary: No Blood Disorders: No Family Medical History Alzheimer's disease 19 MOTHER Cardiovascular disease 19 MOTHER Dementia 19 MOTHER Myocardial infarction 19 MOTHER No Family History of: AIDS Abdominal aortic aneurysm Issaquena's disease Alcoholism Aphasia Arthritis Asthma Cancer of mouth Cataracts Colon cancer Completed stroke Congenital disease Congenital heart disease Coronary thrombosis Cystic fibrosis Deafness or hearing loss Diabetes mellitus Drug abuse Dysphasia Fibrocystic disease of breast Gastroenteritis Glaucoma Headache disorder Hypercholesterolemia Hypertension Infertility Kidney disease Neoplasm Not obtainable due to adoption Osteoporosis Parkinson's disease Prostate cancer Psychosocial problem Respiratory disorder Seizure disorder Severe allergy Thyroid disease Tuberculosis Visual disorder No Pertinent Family Hx Physical Exam Vital Signs - First Documented 04/29/22 04/29/22 04/29/22 19:47 20:25 23:40 Temp 37.6 Pulse 78 Resp 14 B/P (MAP) 167/86 (113) Pulse Ox 97 O2 Delivery Room Air Capillary Refill : Height: 6'1.00" Weight: 329lbs. oz. [id number]; 35.00 BMI Method:Stated General Appearance: WD/WN, no apparent distress, obese HEENT: PERRL/EOMI, normal ENT inspection, TMs normal, pharynx normal Neck: non-tender, full range of motion, supple, normal inspection Respiratory: normal breath sounds, no respiratory distress, no accessory muscle use Cardiovascular: regular rate, rhythm, no edema, no JVD, no murmur Gastrointestinal: normal bowel sounds, non tender, soft Extremities: normal inspection, normal capillary refill Neurologic/Psychiatric: shore hand dredge or barge II-XII nml as tested, no motor/sensory deficits, alert, normal mood/affect, oriented x 3 Skin: normal color Focused Exam Lactate Level 04/29/22 20:10: Lactic Acid Level 2.00 Lactic Acid Level Laboratory Tests Test 04/29/22 20:10 Lactic Acid Level 2.00 MMOL/L (0.50-2.00) Progress/Results/Core Measures Suspected Sepsis SIRS Temperature: Pulse: 78 Respiratory Rate: Laboratory Tests 04/29/22 20:10: White Blood Count 4.3 Blood Pressure 167 /86 Mean: 113 04/29/22 20:10: Lactic Acid Level 2.00 Laboratory Tests 04/29/22 20:10: Creatinine 1.13, INR Comment 1.1, Platelet Count 168, Total Bilirubin 0.8 Results/Orders Lab Results Laboratory Tests Test 04/29/22 20:07 04/29/22 20:10 04/29/22 22:28 Range/Units Urine Color YELLOW Urine Clarity CLEAR Urine pH 6.0 5-9 Urine Specific [place] 1.010 L 1.016-1.022 Urine Protein NEGATIVE NEGATIVE Urine Glucose (UA) NEGATIVE NEGATIVE Urine Ketones NEGATIVE NEGATIVE Urine Nitrite NEGATIVE NEGATIVE Urine Bilirubin NEGATIVE NEGATIVE Urine Urobilinogen 2.0 < = 1.0 MG/DL Urine Leukocyte Esterase NEGATIVE NEGATIVE Urine RBC (Auto) TRACE-I H NEGATIVE Urine RBC RARE /HPF Urine WBC RARE /HPF Urine Squamous Epithelial Cells NONE /HPF Urine Renal Epithelial Cells NONE /HPF Urine Crystals NONE /LPF Urine Bacteria NEGATIVE /HPF Urine Casts NONE /LPF Urine Mucus NEGATIVE /LPF Urine Culture Indicated CULTURE PENDING White Blood Count 4.3 4.3-11.0 10^3/uL Red Blood Count 4.06 L 4.30-5.52 10^6/uL Hemoglobin 13.2 L 13.3-17.7 g/dL Hematocrit 39 L 40-54 % Mean Corpuscular Volume 96 80-99 fL Mean Corpuscular Hemoglobin 33 25-34 pg Mean Corpuscular Hemoglobin Concent 34 32-36 g/dL Red Cell Distribution Width 13.0 10.0-14.5 % Platelet Count 168 130-400 10^3/uL Mean Platelet Volume 10.8 9.0-12.2 fL Immature Granulocyte % (Auto) 1 % Neutrophils (%) (Auto) 78 H 42-75 % Lymphocytes (%) (Auto) 14 12-44 % Monocytes (%) (Auto) 7 0-12 % Eosinophils (%) (Auto) 0 0-10 % Basophils (%) (Auto) 1 0-10 % Neutrophils # (Auto) 3.3 1.8-7.8 10^3/uL Lymphocytes # (Auto) 0.6 L 1.0-4.0 10^3/uL Monocytes # (Auto) 0.3 0.0-1.0 10^3/uL Eosinophils # (Auto) 0.0 0.0-0.3 10^3/uL Basophils # (Auto) 0.0 0.0-0.1 10^3/uL Immature Granulocyte # (Auto) 0.0 0.0-0.1 10^3/uL Erythrocyte Sedimentation Rate 17 0-30 MM/HR Prothrombin Time 14.9 H 12.2-14.7 SEC INR Comment 1.1 0.8-1.4 Activated Partial Thromboplast Time 31 24-35 SEC D-Dimer 1.07 H 0.00-0.49 UG/ML Sodium Level 137 135-145 MMOL/L Potassium Level 4.1 3.6-5.0 MMOL/L Chloride Level 102 98-107 MMOL/L Carbon Dioxide Level 20 L 21-32 MMOL/L Anion Gap 15 H 5-14 MMOL/L Blood Urea Nitrogen 14 7-18 MG/DL Creatinine 1.13 0.60-1.30 MG/DL Estimat Glomerular Filtration Rate 67 BUN/Creatinine Ratio 12 Glucose Level 106 H 70-105 MG/DL Lactic Acid Level 2.00 0.50-2.00 MMOL/L Calcium Level 8.8 8.5-10.1 MG/DL Corrected Calcium 9.0 8.5-10.1 MG/DL Magnesium Level 1.7 1.6-2.4 MG/DL Total Bilirubin 0.8 0.1-1.0 MG/DL Aspartate Amino Transf (AST/SGOT) 23 5-34 U/L Alanine Aminotransferase (ALT/SGPT) 24 0-55 U/L Alkaline Phosphatase 68 40-136 U/L Total Creatine Kinase 98 30-200 U/L Creatine Kinase MB 1.3 <6.6 NG/ML Myoglobin 79.0 10.0-92.0 NG/ML Troponin I < 0.028 <0.028 NG/ML C-Reactive Protein High Sensitivity 1.06 H 0.00-0.50 MG/DL B-Type Natriuretic Peptide 113.3 H <100.0 PG/ML Total Protein 6.4 6.4-8.2 GM/DL Albumin 3.8 3.2-4.5 GM/DL Influenza Type A (RT-PCR) Not Detected Not Detecte Influenza Type B (RT-PCR) Not Detected Not Detecte SARS-CoV-2 RNA (RT-PCR) Not Detected Not Detecte Micro Results Microbiology 04/29/22 Blood Culture - Preliminary, Resulted No growth 04/29/22 Blood Culture - Preliminary, Resulted No growth 04/29/22 Urine Culture - Final, Complete Mixed Bacterial Alicja My Orders Orders - GRETCHEN TOSCANO DO Ed Iv/Invasive Line Start (04/29/22 19:47) Ekg Tracing (04/29/22:47) Monitor-Rhythm Ecg Trace Only (04/29/22:47) Bnp [place] (04/29/22:47) Cbc With Automated Diff (04/29/22:47) Comprehensive Metabolic Panel (04/29/22:47) Creatine Kinase (04/29/22:47) Creatine Kinase Mb (04/29/22:47) Hs C Reactive Protein (04/29/22:47) Fibrin Degradation Products (04/29/22:47) Lactic Acid Analyzer (04/29/22:47) Magnesium (04/29/22:47) Protime With Inr (04/29/22:47) Partial Thromboplastin Time (04/29/22 19:47) Ua Culture If Indicated (04/29/22:47) Erythrocyte Sedimentation Rate (04/29/22:47) Myoglobin Serum (04/29/22:47) Troponin I [place] (04/29/22 19:47) Chest 1 View, Ap/Pa Only (04/29/22:47) Blood Culture (04/29/22:47) Urine Culture (04/29/22:47) Ed Iv/Invasive Line Start (04/29/22 19:47) Ed Iv/Invasive Line Start (04/29/22 19:47) Vital Signs Adult Sepsis Patie Q15M (04/29/22:47) O2 (04/29/22:47) Remove Rings In Anticipation O (04/29/22:47) Ed Iv/Invasive Line Start (04/29/22 19:47) Ns Iv 1000 Ml (Sodium Chloride 0.9%) (04/29/22 20:00) Acetaminophen Tablet (Tylenol Tablet) (04/29/22 20:00) Ct Angio Chest W (04/29/22 21:00) Iohexol Injection (Omnipaque 350 Mg/Ml 1 (04/29/22 21:30) Sodium Chloride Flush (Catheter Flush Sy (04/29/22 21:30) Ns (Ivpb) (Sodium Chloride 0.9% Ivpb Bag (04/29/22 21:30) Influenza A And B By Pcr (04/29/22 22:25) Covid 19 Inhouse Test (04/29/22 22:25) Medications Given in ED Vital Signs/I&O 04/29/22 04/29/22 04/29/22 19:47 20:25 23:40 Temp 37.6 Pulse 78 62 Resp 14 B/P (MAP) 167/86 (113) 125/57 Pulse Ox 97 94 O2 Delivery Room Air Room Air Room Air Capillary Refill : Blood Pressure Mean: 113 Progress Note : Progress Note UNEVENTFUL ER STAY NO COUGH NO DYSPNEA NO HYPOXIA T MAX 99.7 REASSURANCE GIVEN TO PATIENT. ECG Initial ECG Impression Date: Apr 29, 2022 Initial ECG Impression Time: 20:03 Initial ECG Rate: 71 Initial ECG Rhythm: Normal Sinus Initial ECG Impression: Nonspecific Changes Diagnostic Imaging Comments CXR--PER RADIOLOGIST REPORT AT 2057 FINDINGS: The heart size and pulmonary vascularity are normal. The lungs are clear. There are no effusions or pneumothoraces. IMPRESSION: No acute abnormalities in the chest. CT CHEST ANGIOGRAM--PER RADIOLOGIST REPORT AT 2211 FINDINGS: The lungs are clear. There are no effusions or pneumothoraces. There is calcific coronary atherosclerosis. There are no pulmonary emboli. There is no right ventricular strain. There is no hilar or mediastinal lymphadenopathy. There is minimal calcific atherosclerosis of the aorta. There are stones in the gallbladder. IMPRESSION: Coronary atherosclerosis. Cholecystolithiasis. No evidence for pulmonary embolism. Reviewed: Reviewed by Me Departure Impression Primary Impression: COVID-19 virus infection Disposition: HOME, SELF-CARE Condition: Stable Departure-Patient Inst. Decision time for Depature: 22:13 Referrals: PARISH CAMARENA DO (PCP/Family) Primary Care Physician Patient Instructions: COVID-19 Home Care/Discharge, COVID-19 Overview Add. Discharge Instructions: HOME, REST INCREASE YOUR CLEAR LIQUIDS--WATER, BROTH, JELLO, GATORADE TYLENOL AND MOTRIN NEEDED FOR PAIN OR FEVER MUCINEX DM FOR COUGH FOLLOW UP WITH DR. CAMARENA IN 3-4 DAYS FOR FURTHER CARE. All discharge instructions reviewed with patient and/or family. Voiced underst anding. GRETCHEN TOSCANO DO Apr 29, 2022 22:14
[2022-04-29 23:40] VITALS: BP 125/57
== END 2022-04-29 23:40 | disposition home or self-care (01) ==
LOC: EDUNIT# 19:37 → ER 19:41
DX: R52 Pain, unspecified (principal); R50.9 Fever, unspecified; R53.1 Weakness; Z20.822 Contact with and (suspected) exposure to COVID-19
CPT/HCPCS: 36415; 71045; 71275; 80053; 81000; 82550; 82553; 83605; 83735; 83874; 83880; 84484; 85025; 85379; 85610; 85652; 85730; 86141; 87040; 87088; 87636; 93005; 93041

== ENCOUNTER → 2022-07-04 | Outpatient (CLI) | payer OTHER | LOC: WOUNDCARE 13:00 | PROVIDERS: ATTEND Family Medicine | DX: I70.245 Atherosclerosis of native arteries of left leg with ulceration of other part of foot (principal); L97.522 Non-pressure chronic ulcer of other part of left foot with fat layer exposed; L03.032 Cellulitis of left toe; I89.0 Lymphedema, not elsewhere classified; E66.01 Morbid (severe) obesity due to excess calories; Z68.41 Body mass index [BMI] 40.0-44.9, adult | CPT/HCPCS: 99212 ==

== ENCOUNTER 2022-07-08 15:47 | Inpatient (IN) | payer OTHER, MEDICARE ==
[~2022-07-08] VITALS: Ht 185 cm; Wt 123.8 kg
[~2022-07-08 15:47] MED LIST changes: -CARB-275 PO; -CELE100C84 PO
[2022-07-08 17:44] LABS: BASOPHILS % (AUTO) 0 % (0-10); EOSINOPHILS # (AUTO) 0.1 10^3/uL (0.0-0.3); EOSINOPHILS % (AUTO) 1 % (0-10); HEMATOCRIT 38 % (40-54); HEMOGLOBIN 12.7 g/dL (13.3-17.7); LYMPHOCYTES # (AUTO) 1.7 10^3/uL (1.0-4.0); LYMPHOCYTES % (AUTO) 24 % (12-44); MEAN CORPUSCULAR HEMOGLOBIN 31 pg (25-34); MEAN CORPUSCULAR HGB CONC 33 g/dL (32-36); MEAN CORPUSCULAR VOLUME 94 fL (80-99); MEAN PLATELET VOLUME 10.2 fL (9.0-12.2); MONOCYTES # (AUTO) 0.5 10^3/uL (0.0-1.0); MONOCYTES % (AUTO) 8 % (0-12); NEUTROPHILS # (AUTO) 4.6 10^3/uL (1.8-7.8); NEUTROPHILS % (AUTO) 67 % (42-75); PLATELET COUNT 229 10^3/uL (130-400); WHITE BLOOD COUNT 6.8 10^3/uL (4.3-11.0)
--- NOTE | 2022-07-08 17:50 | ED Lower Extremity ---
General Chief Complaint: Lower Extremity Stated Complaint: BILAT FEET ULCERS/SWELLING Nursing Triage Note: PT PRESENTS TO ED VIA POV FROM HOME WITH COMPLAINTS OF BILAT FOOT/ANKLE SWELLING AND ULCERS ON TOES. PT HAS BEEN SEEING WOUND CARE BUT WAS SENT TO ED FOR CONCERNS OF INCREASED SWELLING DESPITE FINISHING ANTIBIOTICS. Source: patient, family () Exam Limitations: no limitations (JEANNINE SAMUELS MD) History of Present Illness Date Seen by Provider: Jul 08, 2022 Initial Comments Patient is a 77-year-old male who presents to the emergency department today with a chief complaint of increased pain to his bilateral feet with leg swelling. Patient has a history of coronary artery disease. He was seen by Dr. Courtney Baum in wound care on July 04. Dressings to a wound on the left great toe were initiated. He presented in follow-up today with worsening pain. Dr. Baum is concerned for arterial disease in the bilateral lower extremities and has referred him to Dr. Coronado, that appointment is pending. 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 No fevers no chills no shortness of breath. He denies chest pain, cough or congestion. No fever. He recently completed a course of Keflex per his primary care physician, Dr. Steinberg yesterday. They are concerned because over the last week he has also developed ulcerations on the dorsum of all of his toes of both feet. All other review of systems reviewed and negative except as stated Onset: last week Severity: severe Pain/Injury Location: left foot Method of Injury: other (Shoes have been rubbing on his toes) Modifying Factors: Worse With Movement (JEANNINE SAMUELS MD) Time Seen by Provider: 17:00 (GRETCHEN JAFFE DO) Allergies and Home Medications Allergies Coded Allergies: No Known Drug Allergies (Unverified , 07/02/10) Patient Home Medication List Home Medication List Reviewed: Yes (JEANNINE SAMUELS MD) Amantadine Hcl (Amantadine) 100 Mg Tablet, 100 MG PO DAILY, (Reported) Entered as Reported by: THO SOLORZANO on 12/26/14 8295 Amoxicillin/Potassium Clav (Augmentin 500-125 Tablet) 1 Each Tablet, 1 EACH PO BID Prescribed by: CARL SANDERS on 10/03/16 1522 Amoxicillin/Potassium Clav (Augmentin 875-125 Tablet) 1 Each Tablet, 1 EACH PO BID Prescribed by: MAL SIERRA on 02/20/18 194 Aspirin (Aspir-Low) 81 Mg Tablet.dr, 81 MG PO DAILY, (Reported) Entered as Reported by: THO SOLORZANO on 12/26/14 1657 Carbidopa/Levodopa (Sinemet 25-100 Tablet) 1 Each Tablet, 1 TAB PO 5 X DAILY, (Reported) Entered as Reported by: THO SOLORZANO on 12/26/14 1643 Cephalexin (Cephalexin) 500 Mg Tablet, 500 MG PO QID Prescribed by: GRETCHEN JAFFE on 03/05/22 041 Cholecalciferol (Vitamin D) 1,000 Unit Tablet, 1,000 UNIT PO DAILY, (Reported) Entered as Reported by: THO SOLORZANO on 12/26/14 1204 Clindamycin HCl (Clindamycin HCl) 300 Mg Capsule, 300 MG PO QID Prescribed by: THU ENGLISH on 10/16/15 181 Dicloxacillin Sodium (Dicloxacillin Sodium) 500 Mg Capsule, 500 MG PO QID Prescribed by: THU ENGLISH on 10/16/15 181 Donepezil Hcl (Donepezil Hcl) 10 Mg Tablet, 10 MG PO HS, (Reported) Entered as Reported by: DIXON BAILEY on 06/16/12 1716 Furosemide (Furosemide) 80 Mg Tablet, 80 MG PO DAILY PRN for SWELLING, (Reported) Entered as Reported by: SHAD LITTLE on 07/02/10 0823 Gabapentin (Neurontin) 300 Mg Capsule, 600 MG PO HS, (Reported) Entered as Reported by: THO SOLORZANO on 12/26/14 165 Guaifenesin (Mucinex) 1,200 Mg Tbmp.12hr, 1,200 MG PO BID PRN for COUGH Prescribed by: PARISH STEINBERG on 12/28/14 0923 Hydrocodone/Acetaminophen (Hydrocodone-Acetamin 5-325 mg) 1 Each Tablet, 1 EACH PO Q4-6 HOURS PRN for PAIN Prescribed by: GRETCHEN JAFFE on 03/05/22 041 Ibuprofen (Advil) 200 Mg Tablet, 600 MG PO DAILY, (Reported) Entered as Reported by: DIXON BAILEY on 06/16/121715 Lisinopril (Zestril) 20 Mg Tablet, 20 MG PO DAILY, (Reported) Entered as Reported by: SHAD LITTLE on 07/02/10822 Metoprolol Tartrate (Metoprolol Tartrate) 25 Mg Tablet, 50 MG PO DAILY, (Report ed) Entered as Reported by: THO SOLORZANO on 12/26/14 165 Metoprolol Tartrate (Metoprolol Tartrate) 25 Mg Tablet, 25 MG PO HS, (Reported) Entered as Reported by: THO SOLORZANO on 12/26/141656 Nirmatrelvir/Ritonavir (Paxlovid Co-Pack (Eua)) 150 Mg X 2-100 Mg Tablet, 1 EACH PO UD Prescribed by: MARSHALL MANCINI on 04/13/22 115 Nitroglycerin (Nitrostat) 0.4 Mg Subl, 0.4 MG SL NEEDED, (Reported) Entered as Reported by: DIXON BAILEY on 06/16/121715 Ondansetron (Ondansetron Odt) 4 Mg Tab.rapdis, 4 MG PO Q4H Prescribed by: GRETCHEN JAFFE on 03/05/22 0421 Potassium Gluconate (Potassium Gluconate) 99 Mg Tablet, 99 MG PO DAILY PRN for WITH LASIX, (Reported) Entered as Reported by: SHAD LITTLE on 07/02/10822 Rosuvastatin Calcium (Crestor) 10 Mg Tablet, 10 MG PO DAILY, (Reported) Entered as Reported by: SHAD LITTLE on 07/02/10822 Sertraline HCl (Zoloft) 100 Mg Tablet, 200 MG PO DAILY, (Reported) Entered as Reported by: CAITLIN BULL on 10/16/15 1546 Ubidecarenone (Co Q10) 100 Mg Capsule, 100 MG PO DAILY, (Reported) Entered as Reported by: DIXON BAILEY on 06/16/121715 Review of Systems Constitutional: see HPI EENTM: no symptoms reported Respiratory: no symptoms reported Cardiovascular: no symptoms reported Gastrointestinal: no symptoms reported Genitourinary: no symptoms reported Musculoskeletal: joint pain (Bilateral feet), joint swelling (Bilateral lower leg) Skin: other (Ulcerations on the feet) (JEANNINE SAMUESL MD) All Other Systems Reviewed Negative Unless Noted: Yes (JEANNINE SAMUELS MD) Past Uxjgxks-Ewyjpd-Ckuxvj Hx Patient Social History Tobacco Use?: Yes Tobacco type used: Cigars Smoking Status: Current Everyday Smoker Substance use?: No Alcohol Use?: No Pt feels they are or have been: No (JEANNINE SAMUELS MD) Immunizations Up To Date Tetanus Booster (TDap): Less than 5yrs First/Initial COVID19 Vaccinat: 12/14 Second COVID19 Vaccination [place]: 01/14 Third COVID19 Vaccination Date: 01/15 (JEANNINE SAMUELS MD) Seasonal Allergies Seasonal Allergies: No (JEANNINE SAMUELS MD) Past Medical History Surgery/Hospitalization HX: GOUT, PVD, Surgeries: Yes (HORSE SHOE KIDNEY- ; CARDIAC CATH WITH STENT) CABG, Coronary Stent, Vascular Surgery Respiratory: No Cardiac: Yes (CARDIAC CATH WITH STENT) Coronary Artery Disease, Heart Attack, High Cholesterol, Hypertension Neurological: Yes Dementia, Parkinson's Disease Reproductive Disorders: No Genitourinary: Yes (HORSESHOE KIDNEY) Gastrointestinal: No Musculoskeletal: No Endocrine: Yes (OBESITY) Tinnitis Cancer: No Psychosocial: Yes PTSD Integumentary: No Blood Disorders: No (JEANNINE SAMUELS MD) Family Medical History Alzheimer's disease 19 MOTHER Cardiovascular disease 19 MOTHER Dementia 19 MOTHER Myocardial infarction 19 MOTHER No Family History of: AIDS Abdominal aortic aneurysm Floyd's disease Alcoholism Aphasia Arthritis Asthma Cancer of mouth Cataracts Colon cancer Completed stroke Congenital disease Congenital heart disease Coronary thrombosis Cystic fibrosis Deafness or hearing loss Diabetes mellitus Drug abuse Dysphasia Fibrocystic disease of breast Gastroenteritis Glaucoma Headache disorder Hypercholesterolemia Hypertension Infertility Kidney disease Neoplasm Not obtainable due to adoption Osteoporosis Parkinson's disease Prostate cancer Psychosocial problem Respiratory disorder Seizure disorder Severe allergy Thyroid disease Tuberculosis Visual disorder No Pertinent Family Hx (JEANNINE SAMUELS MD) Physical Exam Vital Signs Vital Signs - First Documented 07/08/22 16:51 Temp 36.6 Pulse 65 Resp 16 B/P (MAP) 124/82 (96) Pulse Ox 91 (DORCAS,GRETCHEN K DO) Vital Signs Capillary Refill : Less Than 3 Seconds (JEANNINE SAMUELS MD) Height, Weight, BMI Height: 6'1.00" Weight: 329lbs. oz. 149.053502qn; 36.00 BMI Method:Stated General Appearance: WD/WN, no apparent distress HEENT: PERRL/EOMI Cardiovascular: regular rate, rhythm Respiratory: lungs clear, normal breath sounds, no respiratory distress, no accessory muscle use Gastrointestinal: non tender, soft, other (Obese) Hips: bilateral hip normal range of motion Legs: bilateral leg normal range of motion, bilateral leg pain, bilateral leg soft tissue tenderness, bilateral leg swelling Knees: bilateral knee pain, bilateral knee soft tissue tenderness, bilateral knee swelling Ankles: bilateral ankle pain, bilateral ankle soft tissue tenderness, bilateral ankle swelling Feet: bilateral foot pain, bilateral foot soft tissue tenderness, bilateral foot swelling, bilateral foot other (Ulcerations to the dorsum of the left great toe very erythematous, multiple abrasions noted over the dorsum of the rest of the toes. Very erythematous. Tender to touch. No swelling over the toes.) Neurologic/Tendon: normal sensation Neurologic/Psychiatric: alert, normal mood/affect, oriented x 3, other (Fine resting tremor left upper extremity primary) Skin: other (Erythema with petechial rash to the lower legs bilaterally open ulcerations on the feet specifically the toes as mentioned above) (JEANNINE SAMUELS MD) Progress/Results/Core Measures Results/Orders Lab Results Laboratory Tests Test 07/08/22 17:32 Range/Units White Blood Count 6.8 4.3-11.0 10^3/uL Red Blood Count 4.07 L 4.30-5.52 10^6/uL Hemoglobin 12.7 L 13.3-17.7 g/dL Hematocrit 38 L 40-54 % Mean Corpuscular Volume 94 80-99 fL Mean Corpuscular Hemoglobin 31 25-34 pg Mean Corpuscular Hemoglobin Concent 33 32-36 g/dL Red Cell Distribution Width 13.2 10.0-14.5 % Platelet Count 229 130-400 10^3/uL Mean Platelet Volume 10.2 9.0-12.2 fL Immature Granulocyte % (Auto) 0 % Neutrophils (%) (Auto) 67 42-75 % Lymphocytes (%) (Auto) 24 12-44 % Monocytes (%) (Auto) 8 0-12 % Eosinophils (%) (Auto) 1 0-10 % Basophils (%) (Auto) 0 0-10 % Neutrophils # (Auto) 4.6 1.8-7.8 10^3/uL Lymphocytes # (Auto) 1.7 1.0-4.0 10^3/uL Monocytes # (Auto) 0.5 0.0-1.0 10^3/uL Eosinophils # (Auto) 0.1 0.0-0.3 10^3/uL Basophils # (Auto) 0.0 0.0-0.1 10^3/uL Immature Granulocyte # (Auto) 0.0 0.0-0.1 10^3/uL Erythrocyte Sedimentation Rate 66 H 0-30 MM/HR Prothrombin Time 14.2 12.2-14.7 SEC INR Comment 1.1 0.8-1.4 Activated Partial Thromboplast Time 26 24-35 SEC Sodium Level 139 135-145 MMOL/L Potassium Level 4.4 3.6-5.0 MMOL/L Chloride Level 104 98-107 MMOL/L Carbon Dioxide Level 24 21-32 MMOL/L Anion Gap 11 5-14 MMOL/L Blood Urea Nitrogen 15 7-18 MG/DL Creatinine 1.17 0.60-1.30 MG/DL Estimat Glomerular Filtration Rate 64 BUN/Creatinine Ratio 13 Glucose Level 91 70-105 MG/DL Lactic Acid Level 0.82 0.50-2.00 MMOL/L Calcium Level 9.5 8.5-10.1 MG/DL C-Reactive Protein High Sensitivity 1.42 H 0.00-0.50 MG/DL (GRETCHEN JAFFE DO) My Orders Orders - GRETCHEN JAFFE DO Piperacillin Sodium/Tazobactam (Zosyn Vi (07/08/22 18:45) Vancomycin Injection (Vancomycin Injecti (07/08/22 18:45) Code/Resuscitation (07/08/22 18:44) Ed Admission (Communication) (07/08/22 18:44) (GRETCHEN JAFFE DO) Medications Given in ED Current Medications Medications Dose Ordered Sig/Timmy Route Start Time Stop Time Status Last Admin Dose Admin Piperacillin Sod/ Tazobactam Sod 4.5 gm/Sodium Chloride 100 ml @ 200 mls/hr ONCE ONCE IV 07/08/22 18:45 07/08/22 19:14 DC 07/08/22 18:50 200 MLS/HR (GRETCHEN JAFFE DO) Vital Signs/I&O 07/08/22 16:51 Temp 36.6 Pulse 65 Resp 16 B/P (MAP) 124/82 (96) Pulse Ox 91 (GRETCHEN JAFFE DO) Blood Pressure Mean: 96 Progress Progress Note : Time: 18:00 Progress Note care passed to Dr Jaffe at shift change with labs and xrays pending (JEANNINE SAMUELS MD) Progress Note : Progress Note 1800--ASSUMED CARE FROM DR. SAMUELS, ALL STUDIES PENDING. VITALS STABLE PT IS A FULL CODE (GRETCHEN JAFFE DO) Diagnostic Imaging Comments XRAYS BILATERAL FEET--PER RADIOLOGIST REPORT AT 1833 AP, oblique and lateral views of both feet are obtained. There is diffuse narrowing of interphalangeal joints with marginal spurring indicating osteoarthritis. There is also subchondral sclerosis and marginal spurring in the mid feet bilaterally. There is suggestion of diffuse swelling of the feet with calcaneal enthesophytes present. No acute fracture is identified. There is no evidence of periosteal reaction or bone destruction to indicate bone infection. IMPRESSION: Degenerative findings and possible cellulitis of both feet, however, no definite acute osseous abnormality is identified. Reviewed: Reviewed by Me (GRETCHEN JAFFE DO) Departure Communication (Admissions) 183--SPOKE WITH DR. GARCIA, HOSPITALIST, ACCEPTS PT FOR ADMIT. HE WILL DO ADMIT ORDERS. (GRETCHEN JAFFE DO) Impression Primary Impression: Cellulitis of both feet Additional Impression: MULTIPLE BILATERAL FOOT ULCERS Disposition: ADMITTED INPATIENT Condition: Stable Admissions Decision to Admit Reason: Admit from ER (General) Decision to Admit/Date: Jul 08, 2022 Time/Decision to Admit Time: 18:35 (GRETCHEN JAFFE DO) Departure-Patient Inst. Referrals: PARISH STEINBERG DO (PCP/Family) Primary Care Physician JEANNINE SAMUELS MD Jul 08, 2022 17:50 GRETCHEN JAFFE DO Jul 08, 2022 18:15
[2022-07-08 17:56] LABS: POTASSIUM 4.4 MMOL/L (3.6-5.0)
[2022-07-08 17:57] LABS: CALCIUM 9.5 MG/DL (8.5-10.1)
[2022-07-08 18:01] LABS: CREATININE SERUM 1.17 MG/DL (0.60-1.30)
[2022-07-08 18:12] LABS: ERYTHROCYTE SEDIMENTATION RATE 66 MM/HR (0-30)
[2022-07-08 18:18] LABS: INR 1.1 (0.8-1.4); PROTHROMBIN TIME PATIENT 14.2 SEC (12.2-14.7)
--- NOTE | 2022-07-08 18:31 | Diagnostic Imaging Report ---
INDICATION: AP, oblique and lateral views of both feet are obtained. There is diffuse narrowing of interphalangeal joints with marginal spurring indicating osteoarthritis. There is also subchondral sclerosis and marginal spurring in the mid feet bilaterally. There is suggestion of diffuse swelling of the feet with calcaneal enthesophytes present. No acute fracture is identified. There is no evidence of periosteal reaction or bone destruction to indicate bone infection. IMPRESSION: Degenerative findings and possible cellulitis of both feet, however, no definite acute osseous abnormality is identified. Dictated by: Dictated on workstation # [id number]
[2022-07-08] MEDS ORDERED: PIPERACILLIN SODIUM/TAZOBACTAM 4.5 GM in NS (IVPB) 100 ML IV ONE (18:45)
[2022-07-08] MEDS ORDERED: polyethylene glycoL POWDER 17 GM (MIRALAX) PACK PO PRN (19:45)
[2022-07-08] MEDS ORDERED: MILK OF MAGNESIA 400 MG/5 ML 30 ML UDC PO PRN (19:45)
[2022-07-08] MEDS ORDERED: ACETAMINOPHEN 325 MG TABLET PO PRN (19:45)
[2022-07-08] MEDS ORDERED: VANCOMYCIN INJECTION 0.1 MG in NS (IVPB) 250 ML IV SCH (19:45)
[2022-07-08] MEDS ORDERED: diphenhydrAMINE 50 MG/ML INJ (BENADRYL) IVP PRN (19:45)
[2022-07-08] MEDS ORDERED: ONDANSETRON 4 MG/2 ML (SDV) Z0FRAN IV PRN (19:45)
[2022-07-08] MEDS ORDERED: CALCIUM CARBONATE 500 MG (TUMS) TAB.CHEW PO PRN (19:45)
[2022-07-08] MEDS ORDERED: BISACODYL 10 MG SUPP (DULCOLAX) PR PRN (19:45)
[2022-07-08] MEDS ORDERED: LACTULOSE SYRUP 10GM/15ML (ENULOSE) 30ML UDC PO PRN (19:45)
[2022-07-08] MEDS ORDERED: ONDANSETRON 4 MG (ZOFRAN) ORAL DISSOLVE TAB PO PRN (19:45)
[2022-07-08] MEDS ORDERED: diphenhydrAMINE 25 MG TAB (BENADRYL) PO PRN (19:45)
[2022-07-08] MEDS ORDERED: MELATONIN 3 MG TABLET PO PRN (19:45)
[2022-07-08] MEDS ORDERED: ANTACID SUSP 30 ML UDC (MYLANTA) PO PRN (19:45)
[2022-07-08 20:16] VITALS: BP 157/64
[2022-07-08] MEDS: VANCOMYCIN INJECTION 1,000 MG in NS (IVPB) 250 ML IV SCH ×2 (20:17→21:38)
[2022-07-08] MEDS ORDERED: VANCOMYCIN 500 MG/NS 100 ML IV ONE ×2 (22:00)
[2022-07-08] MEDS: DOCUSATE SODIUM 100 MG (COLACE) CAP PO SCH (22:05)
[2022-07-08] MEDS: SENNOSIDES 8.6 MG (SENOKOT) TAB PO SCH (22:05)
[2022-07-08] MEDS: ENOXAPARIN 40 MG/0.4 ML (LOVENOX) SYR SC SCH ×2 (23:09→23:11)
[2022-07-09 00:40] VITALS: BP 112/56
[2022-07-09] MEDS: PIPERACILLIN SODIUM/TAZOBACTAM 4.5 GM in NS (IVPB) 100 ML IV SCH ×2 (01:21→10:18)
[2022-07-09 03:57] VITALS: BP 117/56
[2022-07-09 05:56] LABS: HEMATOCRIT 34 % (40-54); HEMOGLOBIN 11.4 g/dL (13.3-17.7); MEAN CORPUSCULAR HEMOGLOBIN 32 pg (25-34); MEAN CORPUSCULAR HGB CONC 34 g/dL (32-36); MEAN CORPUSCULAR VOLUME 94 fL (80-99); MEAN PLATELET VOLUME 10.2 fL (9.0-12.2); PLATELET COUNT 219 10^3/uL (130-400); WHITE BLOOD COUNT 5.4 10^3/uL (4.3-11.0)
[2022-07-09 08:01] VITALS: BP 122/57
[2022-07-09] MEDS ORDERED: POVIDONE (BETADINE) 10% SOLN 240 ML BTL TOP SCH (09:00)
[2022-07-09] MEDS ORDERED: HYPOCHLOROUS ACID/NaCl (VASHE) 250 ML IR SCH (09:00)
--- NOTE | 2022-07-09 09:01 | Wound Care Assessment ---
Wound Care Assessment Date Seen by Provider: Jul 09, 2022 Time Seen by Provider: 08:56 Chief Complaint Bilateral foot pain, swelling and ulcerations HPI This pleasant 77 year old gentleman initially presented to my office 1 week ago with ulceration of L. great toe and second toe. He is a poor historian (most of history obtained from in office). Since he was last seen in office he developed resting pain and progressing ulcers. He now has stable eschars to nearly all digits (bilateral) and bilateral heels. He continues to have petech ial rash to b/l LE ( states this started 1-2 months ago after COVID-19 medication prescribed). However, it is improved today on my exam (possibly due to elevation overnight). Still with varicosities to bilateral LE. I suspect arterial ulcers and ultrasound has been completed and is pending. He was also started on Vancomycin and Zosyn as well for cellulitis (appropriately). ESR and CRP both elevated, but plain films without evidence of osteomyelitis. He does smoke cigars daily and has h/o PVD and CAD. did state he was complaining of rest pain all day yesterday as well. He notes his pain is improved today. Past Medical History: Admits Heart Disease PVD, lymphedema, obesity Smoking Status: Current Everyday Smoker (2-3 cigars daily) Recreational Drug Use: No Review of Systems General: Other (Obesity) Other systems Poor historian. Limited ROS Exam Vital Signs Date Time Temp Pulse Resp B/P (MAP) Pulse Ox O2 Delivery O2 Flow Rate FiO2 07/09/22 08:01 36.8 60 20 122/57 (78) 94 Room Air Capillary Refill : Less Than 3 Seconds General Appearance: WD/WN, no apparent distress, obese HEENT: other (hearing normal) Neck: full range of motion Cardiovascular: other (LE warm. Dopplerable pulses in office) Respiratory: no respiratory distress, no accessory muscle use Extremities: inflammation, pedal edema, swelling Neurologic/Psychiatric: alert, normal mood/affect, oriented x 3, other (Poor historian) Skin: ecchymosis Skin Problem Location: lower extremities Wound assessment: L. 1 toe: The epithelialization is none. There is no tunneling or undermining. Drainage is large and serous. Granulation is none. Necrotic is large and eschar/slough. The margins show epibole. 1.2x3.2x0.2cm Stable eschars on remaining toes and heels Results Laboratory Tests 07/08/22 17:32: White Blood Count 6.8, Red Blood Count 4.07L, Hemoglobin 12.7L, Hematocrit 38L, Mean Corpuscular Volume 94, Mean Corpuscular Hemoglobin 31, Mean Corpuscular Hemoglobin Concent 33, Red Cell Distribution Width 13.2, Platelet Count 229, Mean Platelet Volume 10.2, Immature Granulocyte % (Auto) 0, Neutrophils (%) (Auto) 67, Lymphocytes (%) (Auto) 24, Monocytes (%) (Auto) 8, Eosinophils (%) (Auto) 1, Basophils (%) (Auto) 0, Neutrophils # (Auto) 4.6, Lymphocytes # (Auto) 1.7, Monocytes # (Auto) 0.5, Eosinophils # (Auto) 0.1, Basophils # (Auto) 0.0, Immature Granulocyte # (Auto) 0.0, Erythrocyte Sedimentation Rate 66H, Prothrombin Time 14.2, INR Comment 1.1, Activated Partial Thromboplast Time 26, Sodium Level 139, Potassium Level 4.4, Chloride Level 104, Carbon Dioxide Level 24, Anion Gap 11, Blood Urea Nitrogen 15, Creatinine 1.17, Estimat Glomerular Filtration Rate 64, BUN/Creatinine Ratio 13, Glucose Level 91, Lactic Acid Level 0.82, Calcium Level 9.5, C-Reactive Protein High Sensitivity 1.42H 07/09/22 05:27: White Blood Count 5.4, Red Blood Count 3.62L, Hemoglobin 11.4L, Hematocrit 34L, Mean Corpuscular Volume 94, Mean Corpuscular Hemoglobin 32, Mean Corpuscular Hemoglobin Concent 34, Red Cell Distribution Width 13.2, Platelet Count 219, Mean Platelet Volume 10.2 Assessment/Plan/Dx Assessment: 1. Non-pressure ulcer L. 1/2 toes 2. Suspected PAD vs. vasculitis 3. Lymphedema 4. PVD with varicosities 5. Petechial rash 6. Cellulitis LE 7. h/o CAD 8. Lymphedema 9. Obesity Plan: 1. Cleanse open ulcers with Vashe. Apply silver alginate HF sheet to wound bed. Cover with gauze and secure with roller gauze and Medipore tape. Change daily. 2. Marty stable eschars liberally with betadine twice daily and allow to air dry. Cover with clean, dry sock 3. Wash bilateral feet well with soap and water 4. Encourage elevation of legs 5. Agree with arterial evaluation 6. Check ANCA, DEVAUGHN and RF 7. Rash appears improved today. Defer need for surgical consult for skin biopsy to primary team discretion. 8. Agree with antibiotics for cellulitis 9. Cardiology involvement as necessary pending results of ultrasound. JOSÉ LUIS LOFTON MD Jul 09, 2022 09:01
--- NOTE | 2022-07-09 09:55 | Diagnostic Imaging Report ---
PROCEDURE: US Bilateral lower extremity arterial. TECHNIQUE: Multiple real-time grayscale images are obtained through both lower extremity arterial systems with color Doppler imaging and color Doppler spectral analysis. INDICATION: Pedal ulcers. FINDINGS: Right leg: There is a normal high resistive triphasic waveform throughout the right femoropopliteal system. There is no femoropopliteal velocity acceleration or deceleration with maintenance of normal laminar color Doppler blood flow. While velocities are normal, there is diminished resistance with a monophasic waveform at the dorsalis pedis and posterior tibials which are patent through the ankle. Left leg: Similar normal high resistive triphasicity to the waveform in the femoropopliteal system of the left leg is present without focal stenosis. There are normal velocities. There is diminished resistance with a monophasic waveform at the dorsalis pedis and posterior tibials which are patent through the ankle. We do note irregularity of the cardiac rhythm and rate. There are some scattered diffuse echogenic calcified plaques throughout both legs. No focal stenosis. No segmental occlusion. IMPRESSION: 1. Mild diffuse atherosclerotic disease without hemodynamically significant stenosis or segmental occlusion. 2. Waveform tracings suggest underlying arrhythmia. Dictated by: Dictated on workstation # [id number]
[2022-07-09] MEDS: DOCUSATE SODIUM 100 MG (COLACE) CAP PO SCH (10:18)
[2022-07-09] MEDS: SENNOSIDES 8.6 MG (SENOKOT) TAB PO SCH (10:18)
--- NOTE | 2022-07-09 10:46 | Physical Therapy Evaluation ---
PT Evaluation-General Medical Diagnosis Admission Date Jul 08, 2022 at 18:45 Medical Diagnosis: cellulitis bilateral feet Onset Date: Jul 08, 2022 Therapy Diagnosis Therapy Diagnosis: debility Height/Weight Height (Feet): 6 Height (Inches): 1.00 Weight (Pounds): 329 Precautions Precautions/Isolations: Fall Prevention, Standard Precautions Referral Physician: Stacy Reason for Referral: Evaluation/Treatment Medical History Pertinent Medical History: CABG, CAD, Dementia, HTN, NV, Parkinson's, PVD, Smoking Current History ER from wound care secondary to bilateral feet wounds and swelling Reviewed History: Yes Social History Home: Single Level Current Living Status: Spouse Entry Into Home: Level Entry Prior Prior Level of Function SCALE: Activities may be completed with or without assistive devices. 4-Huyvwicrfv-piifaye completes the activity by him/herself with no assistance from a helper. 5-Set-up or Clean-up Assistance-helper sets up or cleans up; patient completes activity. [place] assists only prior to or following the activity. 4-Supervision or Touching Assistance-helper provides verbal cues and/or touching/steadying and/or contact guard assistance as patient completes activity. Assistance may be provided throughout the activity or intermittently. 3-Partial/Moderate Assistance-helper does LESS THAN HALF the effort. [place] lifts, holds or supports trunk or limbs, but provides less than half the effort. 2-Substantial/Maximal Assistance-helper does MORE THAN HALF the effort. [place] lifts or holds trunk or limbs and provides more than half the effort. 6-Srokfpflx-vqytli does ALL the effort. Patient does none of the effort to complete the activity. Or, the assistance of 2 or more helpers is required for the patient to complete the activity. If activity was not attempted, code reason: 7-Patient Refused. 9-Not Applicable-not attempted and the patient did not perform the activity before the current illness, exacerbation or injury. 10-Not Attempted due to Environmental Limitations-(lack of equipment, weather restraints, etc.). 88-Not Attempted due to Medical Conditions or Safety Concerns. Bed Mobility: 6 Transfers (B,C,W/C): 6 Gait: 6 Indoor Mobility (Ambulation): Independent Prior Devices Use: None per patient spouse assist with all ADL's PT Evaluation-Current Subjective Patient agrees to PT. Objective Patient Orientation: Person, Time, Situation ROM/Strength ROM Lower Extremities bilateral LE WFL Strength Lower Extremities 4/5 grossly bilateral LE Integumentary/Posture Integumentary refer to nursing notes Bowel Incontinence: No Bladder Incontinence: No Posture WFL Neuromuscular (Tone, Coordination, Reflexes) noted left UE tremor/bilateral LE WFL Sensory Vision: Wears Glasses Hearing: Functional Sensation Right Lower Extremit: Impaired Sensation Left Lower Extremity: Impaired Transfers Lying to Sitting/Side of Bed(Q: 6 Sit to Stand (QC): 6 Toilet Transfer (QC): 6 Gait Mode of Locomotion: Walk Anticipated Mode of Locomotion: Walk Walk 10 feet (QC): 6 Walk 50 ft with 2 Turns(QC): 6 Walk 150 ft (QC): 6 Distance: 300' Gait Assistive Device: FWW Comments/Gait Description safe and functional with no deviation Balance Sitting Static: Normal Sitting Dynamic: Normal Standing Static: Normal Standing Dynamic: Normal Assessment/Needs 77 y.o. male, is currently at independent [facility] with all gross motor skills and does not require skilled PT intervention. Rehab Potential: Fair PT Plan Treatment/Plan Treatment Plan: Discontinue PT, goals met Treatment Duration: Jul 09, 2022 Frequency: 1 time per week Estimated Hrs Per Day: .25 hour per day Patient and/or Family Agrees t: Yes Time/GCodes Time In: 1015 Time Out: 1025 Total Billed Treatment Time: 10 Total Billed Treatment 1 visit EVModC 10 min CATARINO CASTRO PT Jul 09, 2022 10:46
--- NOTE | 2022-07-09 11:44 | Occ Therapy Progress Note ---
Therapy Progress Note OT orders received and chart reviewed. Upon seeing pt, he reports being at his baseline and has no concerns with ADLs upon d/c. Pt indicates he is able to toilet and eat independently while being in the hospital. Per PT note, pt was able to independently walk ~300' with FWW. No skilled OT services needed at this time. D/c from OT. 1, visit BRIEN MARVIN OT Jul 09, 2022 11:44
[2022-07-09 12:32] VITALS: BP 139/65
--- NOTE | 2022-07-09 13:29 | Consultation - Surgery ---
ARIEL NATH 07/09/22 1329: History of Present Illness History of Present Illness Patient Consulted On(darleen/time) 07/09/22 13:21 Date Seen by Provider: Jul 09, 2022 Time Seen by Provider: 13:21 History of Present Illness Consultation requested by Dr. Baum. Pt presents with bilateral leg swelling and multiple ulcers on toes. Pt has a hx of Parkinson's disease, arthritis, and neuropathy of his LE. States he sees podiatry monthly to get his toenails clipped, and that these ulcers were not their last month. Reports x 10 days ago he scraped his big toe on the swimming pool and ever since has had an ulcer on his left great toe. 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 States over the last x 24 hours he developed new ulcers on the top of each toe which have now spread to his right toes. He states they are somewhat painful, but he is still able to ambulate and bend toes. Reports after taking a hot shower the ulcers seem to improve some. States he's had problems with leg swelling before, but it normally gets better with lasix. He denies fever, chills, N/N, abdominal pain, chest pa in, or SOB. He smokes 10 cigars per week, but denies ETOH and recreational drug use. He is not currently on any blood thinners. Allergies and Home Medications Allergies Coded Allergies: No Known Drug Allergies (Unverified , 07/02/10) Patient Home Medication List Carbidopa/Levodopa (Sinemet 25-100 mg Tablet) 25 Mg-100 Mg Tablet, 1 EA PO Q4H, (Reported) Entered as Reported by: SARA WRIGHT on 07/09/22 1638 Last Action: Reviewed Celecoxib (Celecoxib) 100 Mg Capsule, 100 MG PO DAILY, (Reported) Entered as Reported by: SARA WRIGHT on 07/09/22 1638 Last Action: Reviewed Discontinued Medications Amantadine Hcl (Amantadine) 100 Mg Tablet, 100 MG PO DAILY, (Reported) Discontinued Reason: No Longer Taking Entered as Reported by: THO SOLORZANO on 12/26/14 1643 Last Action: Discontinued Amoxicillin/Potassium Clav (Augmentin 500-125 Tablet) 1 Each Tablet, 1 EACH PO BID Discontinued Reason: No Longer Taking Prescribed by: CARL SANDERS on 10/03/16 1522 Last Action: Discontinued Amoxicillin/Potassium Clav (Augmentin 875-125 Tablet) 1 Each Tablet, 1 EACH PO BID Discontinued Reason: No Longer Taking Prescribed by: MAL SIERRA on 02/20/18 194 Last Action: Discontinued Aspirin (Aspir-Low) 81 Mg Tablet.dr, 81 MG PO DAILY, (Reported) Discontinued Reason: No Longer Taking Entered as Reported by: THO SOLORZANO on 12/26/14 165 Last Action: Discontinued Carbidopa/Levodopa (Sinemet 25-100 Tablet) 1 Each Tablet, 1 TAB PO 5 X DAILY, (Reported) Discontinued Reason: No Longer Taking Entered as Reported by: THO SOLORZANO on 12/26/14 164 Last Action: Discontinued Cephalexin (Cephalexin) 500 Mg Tablet, 500 MG PO QID Discontinued Reason: No Longer Taking Prescribed by: GRETCHEN TOSCANO on 03/05/22 0415 Last Action: Discontinued Cholecalciferol (Vitamin D) 1,000 Unit Tablet, 1,000 UNIT PO DAILY, (Reported) Discontinued Reason: No Longer Taking Entered as Reported by: THO SOLORZANO on 12/26/14 1204 Last Action: Discontinued Clindamycin HCl (Clindamycin HCl) 300 Mg Capsule, 300 MG PO QID Discontinued Reason: No Longer Taking Prescribed by: THU ENGLISH on 10/16/151818 Last Action: Discontinued Dicloxacillin Sodium (Dicloxacillin Sodium) 500 Mg Capsule, 500 MG PO QID Discontinued Reason: No Longer Taking Prescribed by: THU ENGLISH on 10/16/151818 Last Action: Discontinued Donepezil Hcl (Donepezil Hcl) 10 Mg Tablet, 10 MG PO HS, (Reported) Discontinued Reason: No Longer Taking Entered as Reported by: DIXON BAILEY on 06/16/12 1716 Last Action: Discontinued Furosemide (Furosemide) 80 Mg Tablet, 80 MG PO DAILY PRN for SWELLING, (Reported) Discontinued Reason: No Longer Taking Entered as Reported by: SHAD LITTLE on 07/02/10 0823 Last Action: Discontinued Gabapentin (Neurontin) 300 Mg Capsule, 600 MG PO HS, (Reported) Discontinued Reason: No Longer Taking Entered as Reported by: THO SOLORZANO on 12/26/141656 Last Action: Discontinued Guaifenesin (Mucinex) 1,200 Mg Tbmp.12hr, 1,200 MG PO BID PRN for COUGH Discontinued Reason: No Longer Taking Prescribed by: PARISH CAMARENA on 12/28/14922 Last Action: Discontinued Hydrocodone/Acetaminophen (Hydrocodone-Acetamin 5-325 mg) 1 Each Tablet, 1 EACH PO Q4-6 HOURS PRN for PAIN Discontinued Reason: No Longer Taking Prescribed by: GRETCHEN TOSCANO on 03/05/22415 Last Action: Discontinued Ibuprofen (Advil) 200 Mg Tablet, 600 MG PO DAILY, (Reported) Discontinued Reason: No Longer Taking Entered as Reported by: DIXON BAILEY on 06/16/121715 Last Action: Discontinued Lisinopril (Zestril) 20 Mg Tablet, 20 MG PO DAILY, (Reported) Discontinued Reason: No Longer Taking Entered as Reported by: SHAD LITTLE on 07/02/10 0823 Last Action: Discontinued Metoprolol Tartrate (Metoprolol Tartrate) 25 Mg Tablet, 50 MG PO DAILY, (Reported) Discontinued Reason: No Longer Taking Entered as Reported by: THO SOLORZANO on 12/26/141656 Last Action: Discontinued Metoprolol Tartrate (Metoprolol Tartrate) 25 Mg Tablet, 25 MG PO HS, (Reported) Discontinued Reason: No Longer Taking Entered as Reported by: THO SOLORZANO on 12/26/141656 Last Action: Discontinued Nirmatrelvir/Ritonavir (Paxlovid Co-Pack (Eua)) 150 Mg X 2-100 Mg Tablet, 1 EACH PO UD Discontinued Reason: No Longer Taking Prescribed by: MARSHALL MANCINI on 04/13/22 1157 Last Action: Discontinued Nitroglycerin (Nitrostat) 0.4 Mg Subl, 0.4 MG SL NEEDED, (Reported) Discontinued Reason: No Longer Taking Entered as Reported by: DIXON BAILEY on 06/16/121715 Last Action: Discontinued Ondansetron (Ondansetron Odt) 4 Mg Tab.rapdis, 4 MG PO Q4H Discontinued Reason: No Longer Taking Prescribed by: GRETCHEN TOSCANO on 03/05/22420 Last Action: Discontinued Potassium Gluconate (Potassium Gluconate) 99 Mg Tablet, 99 MG PO DAILY PRN for WITH LASIX, (Reported) Discontinued Reason: No Longer Taking Entered as Reported by: SHAD LITTLE on 07/02/10822 Last Action: Discontinued Rosuvastatin Calcium (Crestor) 10 Mg Tablet, 10 MG PO DAILY, (Reported) Discontinued Reason: No Longer Taking Entered as Reported by: SHAD LITTLE on 07/02/10822 Last Action: Discontinued Sertraline HCl (Zoloft) 100 Mg Tablet, 200 MG PO DAILY, (Reported) Discontinued Reason: No Longer Taking Entered as Reported by: CAITLIN BULL on 10/16/15 154 Last Action: Discontinued Ubidecarenone (Co Q10) 100 Mg Capsule, 100 MG PO DAILY, (Reported) Discontinued Reason: No Longer Taking Entered as Reported by: DIXON BAILEY on 06/16/121715 Last Action: Discontinued Past Upliusl-Bjqpor-Vvuhoj Hx Patient Social History Smoking Status: Current Everyday Smoker (2-3 cigars daily) Type Used: Cigars (10/wk) 2nd Hand Smoke Exposure: No Recent Hopitalizations: No Alcohol Use?: No Have you traveled recently?: No Immunizations Up To Date Tetanus Booster (TDap): Less than 5yrs Date of Pneumonia Vaccine: Jan 24, 2014 Seasonal Allergies Seasonal Allergies: No Surgeries History of Surgeries: Yes (HORSE SHOE KIDNEY- ; CARDIAC CATH WITH STENT) Surgeries: CABG, Coronary Stent, Vascular Surgery Respiratory History of Respiratory Disorde: No Cardiovascular History of Cardiac Disorders: Yes (CARDIAC CATH WITH STENT) Cardiac Disorders: Coronary Artery Disease, Heart Attack, High Cholesterol, Hypertension Neurological History of Neurological Disord: Yes Neurological Disorders: Dementia, Parkinson's Disease Reproductive System Hx Reproductive Disorders: No Genitourinary History of Genitourinary Disor: Yes (HORSESHOE KIDNEY) Gastrointestinal History of Gastrointestinal Di: No Musculoskeletal History of Musculoskeletal Dis: No Endocrine History of Endocrine Disorders: Yes (OBESITY) HEENT HEENT Disorders: Tinnitis Cancer History of Cancer: No Psychosocial History of Psychiatric Problem: Yes Behavioral Health Disorders: PTSD Integumentary History of Skin or Integumenta: No Blood Transfusions History of Blood Disorders: No Family Medical History Significant Family History: No Pertinent Family Hx Family Medial History: Alzheimer's disease 19 MOTHER Cardiovascular disease 19 MOTHER Dementia 19 MOTHER Myocardial infarction 19 MOTHER No Family History of: AIDS Abdominal aortic aneurysm Corinth's disease Alcoholism Aphasia Arthritis Asthma Cancer of mouth Cataracts Colon cancer Completed stroke Congenital disease Congenital heart disease Coronary thrombosis Cystic fibrosis Deafness or hearing loss Diabetes mellitus Drug abuse Dysphasia Fibrocystic disease of breast Gastroenteritis Glaucoma Headache disorder Hypercholesterolemia Hypertension Infertility Kidney disease Neoplasm Not obtainable due to adoption Osteoporosis Parkinson's disease Prostate cancer Psychosocial problem Respiratory disorder Seizure disorder Severe allergy Thyroid disease Tuberculosis Visual disorder Review of Systems-General Constitutional: No chills, No fever EENTM: No blurred vision Respiratory: No cough, No short of breath Cardiovascular: No chest pain, No palpitations Gastrointestinal: No abdominal pain, No diarrhea, No nausea, No vomiting Genitourinary: No decreased output Skin: other (ulcerations on dorsum of toes, bilaterally) Physical Exam-General Problems Physical Exam Vital Signs Vital Signs - First Documented 07/08/22 07/08/22 16:51 19:49 Temp 36.6 Pulse 65 Resp 16 B/P (MAP) 124/82 (96) Pulse Ox 91 O2 Delivery Room Air Capillary Refill : Less Than 3 Seconds General Appearance: no apparent distress, obese Eyes: Bilateral Eye PERRL, Bilateral Eye EOMI HEENT: pharynx normal Neck: non-tender, supple Cardiovascular: regular rate, rhythm, no gallop, no JVD, no murmur Peripheral Pulses: 2+ Radial Pulses (R), 2+ Radial Pulses (L) Gastrointestinal: normal bowel sounds, non tender, soft Back: no CVA tenderness Extremities: no calf tenderness, pedal edema (2-3+ pitting edema bilaterally), other Neurologic/Psychiatric: alert, normal mood/affect, oriented x 3 Skin: normal color, warm/dry Lymphatic: no adenopathy (supraclavicular ) Data Review Labs Laboratory Tests 07/08/22 17:32: White Blood Count 6.8, Red Blood Count 4.07L, Hemoglobin 12.7L, Hematocrit 38L, Mean Corpuscular Volume 94, Mean Corpuscular Hemoglobin 31, Mean Corpuscular Hemoglobin Concent 33, Red Cell Distribution Width 13.2, Platelet Count 229, Mean Platelet Volume 10.2, Immature Granulocyte % (Auto) 0, Neutrophils (%) (Auto) 67, Lymphocytes (%) (Auto) 24, Monocytes (%) (Auto) 8, Eosinophils (%) (Auto) 1, Basophils (%) (Auto) 0, Neutrophils # (Auto) 4.6, Lymphocytes # (Auto) 1.7, Monocytes # (Auto) 0.5, Eosinophils # (Auto) 0.1, Basophils # (Auto) 0.0, Immature Granulocyte # (Auto) 0.0, Erythrocyte Sedimentation Rate 66H, Prothrombin Time 14.2, INR Comment 1.1, Activated Partial Thromboplast Time 26, Sodium Level 139, Potassium Level 4.4, Chloride Level 104, Carbon Dioxide Level 24, Anion Gap 11, Blood Urea Nitrogen 15, Creatinine 1.17, Estimat Glomerular Filtration Rate 64, BUN/Creatinine Ratio 13, Glucose Level 91, Lactic Acid Level 0.82, Calcium Level 9.5, C-Reactive Protein High Sensitivity 1.42H 07/09/22 05:27: White Blood Count 5.4, Red Blood Count 3.62L, Hemoglobin 11.4L, Hematocrit 34L, Mean Corpuscular Volume 94, Mean Corpuscular Hemoglobin 32, Mean Corpuscular Hemoglobin Concent 34, Red Cell Distribution Width 13.2, Platelet Count 219, Mean Platelet Volume 10.2 Assessment/Plan Assessment/Plan Assessment/Plan Chronic venous stasis dermatitis Ulcerations of dorsal feet bilaterally Parkinson's Disease Peripheral neuropathy I do not believe ulcerations are secondary to vasculitis and do not recommend a bx at this time. Plan to see him as an outpatient. Continue wound care and medical management as needed. WILLIAMS LYNN DO 07/09/222112: History of Present Illness History of Present Illness Time Seen by Provider: 15:11 History of Present Illness Pt seen and examined, consulted regarding possible vasculitis. He thinks his feet are actually a little better; "since I elevated them". Allergies and Home Medications Allergies Coded Allergies: No Known Drug Allergies (Unverified , 07/02/10) Patient Home Medication List Home Medication List Reviewed: Yes Carbidopa/Levodopa (Sinemet 25-100 mg Tablet) 25 Mg-100 Mg Tablet, 1 EA PO Q4H, (Reported) Entered as Reported by: SARA WRIGHT on 07/09/228 Last Action: Reviewed Celecoxib (Celecoxib) 100 Mg Capsule, 100 MG PO DAILY, (Reported) Entered as Reported by: SARA WRIGHT on 07/09/228 Last Action: Reviewed Discontinued Medications Amantadine Hcl (Amantadine) 100 Mg Tablet, 100 MG PO DAILY, (Reported) Discontinued Reason: No Longer Taking Entered as Reported by: THO SOLORZANO on 12/26/14 1643 Last Action: Discontinued Amoxicillin/Potassium Clav (Augmentin 500-125 Tablet) 1 Each Tablet, 1 EACH PO BID Discontinued Reason: No Longer Taking Prescribed by: CARL SANDERS on 10/03/16 1522 Last Action: Discontinued Amoxicillin/Potassium Clav (Augmentin 875-125 Tablet) 1 Each Tablet, 1 EACH PO BID Discontinued Reason: No Longer Taking Prescribed by: MAL SIERRA on 02/20/18 194 Last Action: Discontinued Aspirin (Aspir-Low) 81 Mg Tablet.dr, 81 MG PO DAILY, (Reported) Discontinued Reason: No Longer Taking Entered as Reported by: THO SOLORZANO on 12/26/14 165 Last Action: Discontinued Carbidopa/Levodopa (Sinemet 25-100 Tablet) 1 Each Tablet, 1 TAB PO 5 X DAILY, (Reported) Discontinued Reason: No Longer Taking Entered as Reported by: THO SOLORZANO on 12/26/14 164 Last Action: Discontinued Cephalexin (Cephalexin) 500 Mg Tablet, 500 MG PO QID Discontinued Reason: No Longer Taking Prescribed by: GRETCHEN TOSCANO on 03/05/22 0415 Last Action: Discontinued Cholecalciferol (Vitamin D) 1,000 Unit Tablet, 1,000 UNIT PO DAILY, (Reported) Discontinued Reason: No Longer Taking Entered as Reported by: THO SOLORZANO on 12/26/14 1204 Last Action: Discontinued Clindamycin HCl (Clindamycin HCl) 300 Mg Capsule, 300 MG PO QID Discontinued Reason: No Longer Taking Prescribed by: THU ENGLISH on 10/16/151818 Last Action: Discontinued Dicloxacillin Sodium (Dicloxacillin Sodium) 500 Mg Capsule, 500 MG PO QID Discontinued Reason: No Longer Taking Prescribed by: THU ENGLISH on 10/16/151818 Last Action: Discontinued Donepezil Hcl (Donepezil Hcl) 10 Mg Tablet, 10 MG PO HS, (Reported) Discontinued Reason: No Longer Taking Entered as Reported by: DIXON BAILEY on 06/16/12 1716 Last Action: Discontinued Furosemide (Furosemide) 80 Mg Tablet, 80 MG PO DAILY PRN for SWELLING, (Reported) Discontinued Reason: No Longer Taking Entered as Reported by: SHAD LITTLE on 07/02/10822 Last Action: Discontinued Gabapentin (Neurontin) 300 Mg Capsule, 600 MG PO HS, (Reported) Discontinued Reason: No Longer Taking Entered as Reported by: THO SOLORZANO on 12/26/141656 Last Action: Discontinued Guaifenesin (Mucinex) 1,200 Mg Tbmp.12hr, 1,200 MG PO BID PRN for COUGH Discontinued Reason: No Longer Taking Prescribed by: PARISH CAMARENA on 12/28/14922 Last Action: Discontinued Hydrocodone/Acetaminophen (Hydrocodone-Acetamin 5-325 mg) 1 Each Tablet, 1 EACH PO Q4-6 HOURS PRN for PAIN Discontinued Reason: No Longer Taking Prescribed by: GRETCHEN TOSCANO on 03/05/22415 Last Action: Discontinued Ibuprofen (Advil) 200 Mg Tablet, 600 MG PO DAILY, (Reported) Discontinued Reason: No Longer Taking Entered as Reported by: DIXON BAILEY on 06/16/121715 Last Action: Discontinued Lisinopril (Zestril) 20 Mg Tablet, 20 MG PO DAILY, (Reported) Discontinued Reason: No Longer Taking Entered as Reported by: SHAD LITTLE on 07/02/10822 Last Action: Discontinued Metoprolol Tartrate (Metoprolol Tartrate) 25 Mg Tablet, 50 MG PO DAILY, (Report ed) Discontinued Reason: No Longer Taking Entered as Reported by: THO SOLORZANO on 12/26/141656 Last Action: Discontinued Metoprolol Tartrate (Metoprolol Tartrate) 25 Mg Tablet, 25 MG PO HS, (Reported) Discontinued Reason: No Longer Taking Entered as Reported by: THO SOLORZANO on 12/26/141656 Last Action: Discontinued Nirmatrelvir/Ritonavir (Paxlovid Co-Pack (Eua)) 150 Mg X 2-100 Mg Tablet, 1 EACH PO UD Discontinued Reason: No Longer Taking Prescribed by: MARSHALL MANCINI on 04/13/22 1157 Last Action: Discontinued Nitroglycerin (Nitrostat) 0.4 Mg Subl, 0.4 MG SL NEEDED, (Reported) Discontinued Reason: No Longer Taking Entered as Reported by: DIXON BAILEY on 06/16/121715 Last Action: Discontinued Ondansetron (Ondansetron Odt) 4 Mg Tab.rapdis, 4 MG PO Q4H Discontinued Reason: No Longer Taking Prescribed by: GRETCHEN TOSCANO on 03/05/22420 Last Action: Discontinued Potassium Gluconate (Potassium Gluconate) 99 Mg Tablet, 99 MG PO DAILY PRN for WITH LASIX, (Reported) Discontinued Reason: No Longer Taking Entered as Reported by: SHAD LITTLE on 07/02/10822 Last Action: Discontinued Rosuvastatin Calcium (Crestor) 10 Mg Tablet, 10 MG PO DAILY, (Reported) Discontinued Reason: No Longer Taking Entered as Reported by: SHAD LITTLE on 07/02/10822 Last Action: Discontinued Sertraline HCl (Zoloft) 100 Mg Tablet, 200 MG PO DAILY, (Reported) Discontinued Reason: No Longer Taking Entered as Reported by: CAITLIN BULL on 10/16/15 154 Last Action: Discontinued Ubidecarenone (Co Q10) 100 Mg Capsule, 100 MG PO DAILY, (Reported) Discontinued Reason: No Longer Taking Entered as Reported by: DIXON BAILEY on 06/16/12 171 Last Action: Discontinued Past Rftwggt-Urbqrn-Mhqgul Hx Patient Social History Smoking Status: Current Everyday Smoker Type Used: Cigars (10/wk) Surgeries History of Surgeries: Yes Surgeries: CABG, Coronary Stent, Vascular Surgery Respiratory History of Respiratory Disorde: No Cardiovascular History of Cardiac Disorders: Yes Cardiac Disorders: Coronary Artery Disease, Heart Attack, High Cholesterol, Hypertension, Peripheral Vascular Neurological History of Neurological Disord: Yes Neurological Disorders: Dementia, Parkinson's Disease Genitourinary History of Genitourinary Disor: Yes (horseshoe kidney) Gastrointestinal History of Gastrointestinal Di: No Musculoskeletal History of Musculoskeletal Dis: Yes Musculoskeletal Disorders: Arthritis, Chronic Back Pain Cancer History of Cancer: No Psychosocial History of Psychiatric Problem: Yes Behavioral Health Disorders: PTSD Family Medical History Significant Family History: Heart Disease, Other Conditions/Hx (dementia and alzheimers) Family Medial History: Alzheimer's disease 19 MOTHER Cardiovascular disease 19 MOTHER Dementia 19 MOTHER Myocardial infarction 19 MOTHER Review of Systems-General Constitutional: No chills, No fever EENTM: No blurred vision, No epistaxis Respiratory: No cough, No short of breath Cardiovascular: No chest pain; Hx of Intervention; No palpitations Gastrointestinal: No abdominal pain, No diarrhea, No nausea, No vomiting Genitourinary: No decreased output, No dysuria, No hematuria Musculoskeletal: back pain, joint pain, muscle stiffness Skin: change in color; No change in hair/nails; other (ulcerations on dorsum of toes, bilaterally) Psychiatric/Neurological: Denies Anxiety, Denies Depressed, Denies Seizure Physical Exam-General Problems Physical Exam General Appearance: no apparent distress, obese Eyes: Bilateral Eye PERRL, Bilateral Eye EOMI HEENT: pharynx normal; No scleral icterus (R), No scleral icterus (L) Neck: non-tender, supple Respiratory: lungs clear, normal breath sounds, no respiratory distress, no accessory muscle use Cardiovascular: regular rate, rhythm, no murmur Gastrointestinal: normal bowel sounds, non tender, soft Back: no CVA tenderness Extremities: no calf tenderness, pedal edema (2-3+ pitting edema bilaterally), other (chronic venous stasis changes, petechia on LE, scabs on dorsum of toes, toes look ??purplish) Neurologic/Psychiatric: alert, normal mood/affect, oriented x 3 Skin: normal color, warm/dry Lymphatic: no adenopathy (supraclavicular ) Data Review Radiology Date of Exam:07/09/22 US VENOUS LOWER EXT [place] PROCEDURE: US Venous Lower Ext [place]. TECHNIQUE: Multiple real-time grayscale images were obtained over the lower extremities in various projections, bilaterally. Additional duplex Doppler and color Doppler images were also obtained. INDICATION: Bilateral lower extremity edema. FINDINGS: There is no evidence of right or left lower extremity DVT. Both lower extremity deep venous systems demonstrate normal compressibility with normal response to augmentation and Valsalva. No fluid collection or mass is detected. IMPRESSION: No evidence of right or left lower extremity DVT. Dictated by: Dictated on workstation # [id number] Dict: 07/09/22 1628 Trans: 07/09/22 1721 [id number] Interpreted by: LILIAN FLORENTINO MD Electronically signed by: LILIAN FLORENTINO MD 07/09/22 1721 Date of Exam:07/09/22 US [place] LOWER EXT [id number] PROCEDURE: US Bilateral lower extremity arterial. TECHNIQUE: Multiple real-time grayscale images are obtained through both lower extremity arterial systems with color Doppler imaging and color Doppler spectral analysis. INDICATION: Pedal ulcers. FINDINGS: Right leg: There is a normal high resistive triphasic waveform throughout the right femoropopliteal system. There is no femoropopliteal velocity acceleration or deceleration with maintenance of normal laminar color Doppler blood flow. While velocities are normal, there is diminished resistance with a monophasic waveform at the dorsalis pedis and posterior tibials which are patent through the ankle. Left leg: Similar normal high resistive triphasicity to the waveform in the femoropopliteal system of the left leg is present without focal stenosis. There are normal velocities. There is diminished resistance with a monophasic waveform at the dorsalis pedis and posterior tibials which are patent through the ankle. We do note irregularity of the cardiac rhythm and rate. There are some scattered diffuse echogenic calcified plaques throughout both legs. No focal stenosis. No segmental occlusion. IMPRESSION: 1. Mild diffuse atherosclerotic disease without hemodynamically significant stenosis or segmental occlusion. 2. Waveform tracings suggest underlying arrhythmia. Dictated by: Dictated on workstation # [id number] Dict: 07/09/22 0942 Trans: 07/09/22 1612 [id number] Interpreted by: LUIS STRANGE Electronically signed by: LUIS STRANGE 07/09/22 1612 Assessment/Plan Assessment/Plan Assessment/Plan Chronic venous stasis dermatitis Ulcerations of dorsal feet bilaterally Parkinson's Disease Peripheral neuropathy I do not believe ulcerations are secondary to vasculitis and do not recommend a bx at this time. Plan to see him as an outpatient. Continue wound care and medical management as needed. He may need amputation of toes if blood flow does not improve. Supervisory-Addendum Brief Verification & Attestation Participated in pt care: history, MDM, physical Personally performed: exam, history, MDM, supervision of care Care discussed with: Medical Student Procedures: n/a Verification and Attestation of Medical Student E/M Service A medical student performed and documented this service. I then reviewed and verified all information documented by the medical student and made carlos eduardo fications to such information, when appropriate. I personally performed a physical exam, medical decision making and then discussed any differences between the notes and made revisions as necessary to create one note. Williams Lynn , 07/09/22 , 21:15 ARIEL NATH Jul 09, 2022 13:29 WILLIAMS LYNN DO Jul 09, 2022 21:13
[2022-07-09 15:19] VITALS: BP 130/94
--- NOTE | 2022-07-09 16:33 | Diagnostic Imaging Report ---
PROCEDURE: US Venous Lower Ext [place]. TECHNIQUE: Multiple real-time grayscale images were obtained over the lower extremities in various projections, bilaterally. Additional duplex Doppler and color Doppler images were also obtained. INDICATION: Bilateral lower extremity edema. FINDINGS: There is no evidence of right or left lower extremity DVT. Both lower extremity deep venous systems demonstrate normal compressibility with normal response to augmentation and Valsalva. No fluid collection or mass is detected. IMPRESSION: No evidence of right or left lower extremity DVT. Dictated by: Dictated on workstation # [id number]
[2022-07-09] MEDS ORDERED: CARB-275 PO (16:38)
[2022-07-09] MEDS ORDERED: CELE100C84 PO (16:38)
[2022-07-09] MEDS ORDERED: VANCOMYCIN 1,750 MG/NS 500 ML IVPB IV SCH ×2 (20:00)
--- NOTE | 2022-07-09 20:13 | Short Stay Summary-Hospitalist ---
History of Present Illness HPI/Chief Complaint Errol Loredo is a 77 year old male with PMH HTN, HLD, CAD, Parkinson's disease, who presented with bilateral foot ulcers. These have developed over the past couple weeks. He has also had leg swelling. He has a petechial rash over his bilateral shins to his feet. He denies fevers and chills. He denies weight loss and weight gain. His appetite has been poor. He denies shortness of breath and cough. He denies chest pain and palpitations. He denies abdominal pain, nausea, vomiting, diarrhea, and constipation. He is non-adherent to his medications. He does not take anything regularly. He takes Zoloft as needed. Source: patient Exam Limitations: no limitations Date Seen 07/09/22 Time Seen by a Provider: 10:05 Attending Physician Ward Steinberg DO PCP Admitting Physician: Stevenson Ross MD Attending Physician: Stevenson Ross MD Referring Physician Date of Admission Jul 08, 2022 at 18:45 Home Medications & Allergies Home Medications Reviewed patient Home Medication Reconciliation performed by pharmacy medication reconciliations radio electronics technician and/or nursing. Patients Allergies have been reviewed. Allergies Allergies Coded Allergies No Known Drug Allergies (Unverified07/02/10) Past Dmhrkkb-[id number]-Sytrxv Hx Patient Social History Tobacco Use?: Yes Tobacco type used: Cigars Smoking Status: Current Everyday Smoker (2-3 cigars daily) Smokeless Tobacco Frequency: Never a User Use of E-Cig and/or Vaping dev: No Use of E-Cig and/or Vaping Mazin: Never a User Substance use?: No Alcohol Use?: No Pt feels they are or have been: No Immunizations Up To Date First/Initial COVID19 Vaccinat: 12/14 Second COVID19 Vaccination [place]: 01/14 Tetanus Booster (TDap): Less Than 5 Years Date of Pneumonia Vaccine: Jan 24, 2014 Seasonal Allergies Seasonal Allergies: No Current Status Advance Directives: No Communicates: Verbally Primary Language: [place] Preferred Spoken Language: [place] Is interpretation needed?: No Sensory deficits: Vision impairment Past Medical History Surgeries: CABG, Coronary Stent, Vascular Surgery Coronary Artery Disease, Heart Attack, High Cholesterol, Hypertension Dementia, Parkinson's Disease Tinnitis PTSD Blood Disorders: No Family Medical History Alzheimer's disease 19 MOTHER Cardiovascular disease 19 MOTHER Dementia 19 MOTHER Myocardial infarction 19 MOTHER No Family History of: AIDS Abdominal aortic aneurysm [place]'s disease Alcoholism Aphasia Arthritis Asthma Cancer of mouth Cataracts Colon cancer Completed stroke Congenital disease Congenital heart disease Coronary thrombosis Cystic fibrosis Deafness or hearing loss Diabetes mellitus Drug abuse Dysphasia Fibrocystic disease of breast Gastroenteritis Glaucoma Headache disorder Hypercholesterolemia Hypertension Infertility Kidney disease Neoplasm Not obtainable due to adoption Osteoporosis Parkinson's disease Prostate cancer Psychosocial problem Respiratory disorder Seizure disorder Severe allergy Thyroid disease Tuberculosis Visual disorder Review of Systems Constitutional: no symptoms reported EENTM: no symptoms reported Respiratory: no symptoms reported Cardiovascular: no symptoms reported Gastrointestinal: no symptoms reported Physical Exam Physical Exam Vital Signs Vital Signs - First Documented 07/08/22 07/08/22 16:51 19:49 Temp 36.6 Pulse 65 Resp 16 B/P (MAP) 124/82 (96) Pulse Ox 91 O2 Delivery Room Air Capillary Refill : Less Than 3 Seconds Height, Weight, BMI Height: 6'1.00" Weight: 329lbs. oz. 149.954696ro; 36.17 BMI Method:Stated General Appearance: No Apparent Distress, Obese Eyes: Bilateral Eye PERRL, Bilateral Eye EOMI HEENT: PERRL/EOMI, Pharynx Normal Neck: Normal Inspection, Supple Respiratory: Lungs Clear, Normal Breath Sounds, No Respiratory Distress Cardiovascular: Regular Rate, Rhythm, No Edema, No Murmur Gastrointestinal: Normal Bowel Sounds, Non Tender, Soft Extremity: No Inflammation; Swelling, Other (bilateral toe ulcerations) Neurologic/Psychiatric: Alert, Normal Mood/Affect Results Results/Procedures Labs Laboratory Tests 07/08/22 17:32 07/09/22 05:27 Patient resulted labs reviewed. Imaging: Reviewed Imaging Report Short Stay Diagnosis Discharge Diagnosis-Short Stay Admission Diagnosis Cellulitis Final Discharge Diagnosis Bilateral toe ulcerations Conclusion Plan Bilateral toe ulcerations Arterial ultrasound negative Venous ultrasound negative No cellulitis identified, antibiotics discontinued Surgery consulted, recommended against skin biopsy, vasculitis not suspected Follow up in wound clinic Consider Rheumatology referral outpatient Diagnosis/Problems Diagnosis/Problems (1) Toe ulcer Status: Acute Qualifiers: STEVENSON ROSS MD Jul 09, 2022 20:13
[2022-07-10] MEDS ORDERED: TROUGH ORDER-PHARMACY XX NR (19:00)
== END 2022-07-09 16:50 | disposition home or self-care (01) | DRG 594 ==
LOC: EDUNIT# 15:47 → ER 15:48 → 4TH 18:45
PROVIDERS: ADMIT Internal Medicine; ATTEND Internal Medicine
DX: L97.529 Non-pressure chronic ulcer of other part of left foot with unspecified severity (principal); L97.519 Non-pressure chronic ulcer of other part of right foot with unspecified severity; G20 Parkinson's disease; F02.80 Dementia in other diseases classified elsewhere, unspecified severity, without behavioral disturbance, psychotic disturbance, mood disturbance, and anxiety; Z95.1 Presence of aortocoronary bypass graft; Z95.5 Presence of coronary angioplasty implant and graft; I25.10 Atherosclerotic heart disease of native coronary artery without angina pectoris; E78.00 Pure hypercholesterolemia, unspecified; I25.2 Old myocardial infarction; I10 Essential (primary) hypertension; F43.10 Post-traumatic stress disorder, unspecified; F17.210 Nicotine dependence, cigarettes, uncomplicated; I73.9 Peripheral vascular disease, unspecified; I89.0 Lymphedema, not elsewhere classified; E66.9 Obesity, unspecified; I83.025 Varicose veins of left lower extremity with ulcer other part of foot; M19.90 Unspecified osteoarthritis, unspecified site; G62.9 Polyneuropathy, unspecified; Z79.82 Long term (current) use of aspirin; I87.8 Other specified disorders of veins; Z68.36 Body mass index [BMI] 36.0-36.9, adult
CPT/HCPCS: 36415; 80048; 83605; 85025; 85027; 85610; 85652; 85730; 86021; 86038; 86039; 86141; 86431; 87040; 93005; 93925; 93970

== ENCOUNTER → 2022-07-08 | Outpatient (CLI) | payer OTHER ==
[~2022-07-08] MED LIST changes: +CARB-275 PO; +CELE100C84 PO
== END ==
LOC: WOUNDCARE 15:12
PROVIDERS: ATTEND Family Medicine
DX: L97.522 Non-pressure chronic ulcer of other part of left foot with fat layer exposed (principal); I70.245 Atherosclerosis of native arteries of left leg with ulceration of other part of foot; L03.032 Cellulitis of left toe; I89.0 Lymphedema, not elsewhere classified; E66.01 Morbid (severe) obesity due to excess calories; D69.2 Other nonthrombocytopenic purpura; I96 Gangrene, not elsewhere classified
CPT/HCPCS: 99212

== ENCOUNTER → 2022-07-11 | Outpatient (CLI) | payer OTHER, MEDICARE ==
[~2022-07-11] MED LIST changes: +CARB-275 PO; +CELE100C84 PO
== END ==
LOC: WOUNDCARE 14:36
PROVIDERS: ATTEND Family Medicine
DX: I70.245 Atherosclerosis of native arteries of left leg with ulceration of other part of foot (principal); L97.522 Non-pressure chronic ulcer of other part of left foot with fat layer exposed; I89.0 Lymphedema, not elsewhere classified; E66.01 Morbid (severe) obesity due to excess calories; D69.49 Other primary thrombocytopenia; I73.00 Raynaud's syndrome without gangrene; Z68.41 Body mass index [BMI] 40.0-44.9, adult
CPT/HCPCS: 11042

== ENCOUNTER → 2022-07-17 | Outpatient (CLI) | payer OTHER, MEDICARE | LOC: WOUNDCARE 13:53 | PROVIDERS: ATTEND Family Medicine | DX: L97.522 Non-pressure chronic ulcer of other part of left foot with fat layer exposed (principal); I70.245 Atherosclerosis of native arteries of left leg with ulceration of other part of foot; I89.0 Lymphedema, not elsewhere classified; E66.01 Morbid (severe) obesity due to excess calories; D69.2 Other nonthrombocytopenic purpura; I73.00 Raynaud's syndrome without gangrene; I96 Gangrene, not elsewhere classified | CPT/HCPCS: 11042 ==

== ENCOUNTER → 2022-07-31 | Outpatient (CLI) | payer OTHER, MEDICARE | LOC: WOUNDCARE 14:03 | PROVIDERS: ATTEND Family Medicine | DX: L97.522 Non-pressure chronic ulcer of other part of left foot with fat layer exposed (principal); I89.0 Lymphedema, not elsewhere classified; E66.01 Morbid (severe) obesity due to excess calories; I70.245 Atherosclerosis of native arteries of left leg with ulceration of other part of foot; D69.2 Other nonthrombocytopenic purpura; I73.00 Raynaud's syndrome without gangrene; I96 Gangrene, not elsewhere classified | CPT/HCPCS: 99212 ==

== ENCOUNTER → 2022-08-15 | Outpatient (CLI) | payer OTHER, MEDICARE | LOC: WOUNDCARE 13:38 | PROVIDERS: ATTEND Family Medicine | DX: I70.245 Atherosclerosis of native arteries of left leg with ulceration of other part of foot (principal); L97.522 Non-pressure chronic ulcer of other part of left foot with fat layer exposed; I89.0 Lymphedema, not elsewhere classified; E66.01 Morbid (severe) obesity due to excess calories; D69.2 Other nonthrombocytopenic purpura; I73.00 Raynaud's syndrome without gangrene; Z68.41 Body mass index [BMI] 40.0-44.9, adult | CPT/HCPCS: 99212 ==